=== PATIENT | female | born 1935 | race Caucasian/White ===

== ENCOUNTER 2021-02-17 11:59 | Inpatient (IN) | payer OTHER, SELFPAY ==
[2021-02-17] VITALS (25 sets, daily range): BP systolic 113–154; BP diastolic 51–76; PULSE 66–89; RESP 16–35; TEMP 36.3–37.2; O2SAT 88–100; BMI 35.9
--- NOTE | ~2021-02-17 | CT_ITS ---
EXAMINATION: CTA chest PE protocol DATE: 02/17/2021 18:08 INDICATION: Shortness of breath. Elevated d-dimer. TECHNIQUE: Computed tomography (CT) pulmonary angiogram of the chest was performed with 100 mL Omnipa que-350 intravenous contrast. Additional 3D reconstructions utilizing coronal maximum intensity proje ction (MIP) were performed. Automated exposure control and iterative reconstruction technique were em ployed. The dose-length product was 830.33 mGy-cm. COMPARISON: None FINDINGS: Excellent contrast opacification of the pulmonary arteries. There is moderate streak artifact from de nse contrast in the superior vena cava and right atrium. Severe motion artifact in the lower lung zon es and mild to moderate motion in the upper lung zones. Together this decreases sensitivity in the garcia bsegmental pulmonary arteries in the mid and upper lung zones and renders evaluation in the subsegmen rodney pulmonary arteries at the bilateral lower lung zones and the basilar subsegmental pulmonary arter ies of the left lower lobe essentially nondiagnostic. No definitive pulmonary embolism. Dependent ate lectasis in the bilateral upper lobes and lingula and more prominently in the bilateral lower lobes. There is additional compressive atelectasis in the left lower lobe at the periphery of a large slidin g-type hiatal hernia with organoaxial volvulus. Partially calcified chronic bronchoceles in the right lower lobe. Additional mucous plugging in the basilar bronchi of the left lower lobe. A few addition al small calcified nodules scattered throughout both lungs along with additional calcified nodules, f ew in the liver and multiple the spleen, all consistent with old granulomatous disease. No pulmonary edema, pleural effusion or pneumothorax. Heart size is normal. Atherosclerotic coronary artery calcif ication. No pericardial effusion. Thoracic aorta is normal in caliber with no dissection. No patholog ically enlarged thoracic lymphadenopathy. Gallbladder is dilated to 4.7 cm with no pericholecystic in flammatory stranding to suggest acute cholecystitis. Moderate thoracic spondylosis with bridging oste ophytes at multiple levels consistent with diffuse idiopathic skeletal hyperostosis (DISH). IMPRESSION: 1. No definitive pulmonary embolism. Sensitivity decreased in the subsegmental pulmonary arteries in the mid and upper lung zones and essentially nondiagnostic in the basilar segmental pulmonary arterie s of the left lower lobe and the subsegmental arteries at the bilateral lung bases due to primarily t o large amount of motion artifact. 2. Scattered dependent predominant atelectasis in both lungs along with some mucous plugging the left lower lobe and a chronic partially calcified bronchocele in the right lower lobe. 3. Large sliding-type hiatal hernia. Reviewed, dictated and finalized at location A. IMPRESSION: 1. No definitive pulmonary embolism. Sensitivity decreased in the subsegmental pulmonary arteries in the mid and upper lung zones and essentially nondiagnosti c in the basilar segmental pulmonary arteries of the left lower lobe and the garcia bsegmental arteries at the bilateral lung bases due to primarily to large amoun t of motion artifact. 2. Scattered dependent predominant atelectasis in both lungs along with some mu cous plugging the left lower lobe and a chronic partially calcified bronchocele in the right lower lobe. 3. Large sliding-type hiatal hernia.
--- NOTE | ~2021-02-17 | XR_ITS ---
EXAMINATION: XR chest 2V EXAM DATE: 02/17/2021 12:37 INDICATION: Dyspnea, acute hypoxia, COVID + . TECHNIQUE: Frontal and lateral projections of the chest obtained and reviewed. Comparison is made to prior examination from 11/15/2018. FINDINGS: Moderate-sized gastroesophageal hiatal hernia. Some adjacent airspace disease most likely a telectasis. There are no pleural effusions. The cardiomediastinal silhouette is within normal limits . There is no pneumothorax suspected. The bones and soft tissues are unremarkable. There is no si gnificant interval change. IMPRESSION: Moderate-sized hiatal hernia, adjacent atelectasis. Reviewed, dictated and finalized at location A.
--- NOTE | 2021-02-17 12:06 | ECG_ITS ---
Measurements Intervals [place] Rate: 77 P: 72 IN: 163 QRS: 19 QRSD: 90 T: 116 QT: 363 QTc: 413 Interpretive Statements SINUS RHYTHM ST-T WAVE ABNORMALITY IN ANTEROLATERAL LEADS- CONSIDER ISCHEMIA BASELINE ARTIFACT- I, II, III, AVR, AVL, AVF, V5 ABNORMAL ECG Electronically Signed On 02-17-2021 19:20:16 CDT by Jeremy Solorio D.O.
[2021-02-17 12:22] LABS: Basophils Percent Auto 0.2 % (0.2-1.2); Eosinophils Percent Auto 0.2 % (0-4.4); Hematocrit 36.9 % (37.0-47.0); Hemoglobin 12.3 g/dL (12.0-15.0); Immature Granulocyte Absolute 0.02 K/mm3 (0.00-0.031); Immature Granulocyte Percent A 0.3 % (0-0.5); Immature Platelet Fraction Pct 4.4 % (0.9-11.2); Lymphocytes Absolute Auto 2.29 K/mm3 (0.9-3.2); Lymphocytes Percent Auto 38.3 % (18.3-44.2); Mean Corpuscular HGB Conc 33.3 g/dl (32-36); Mean Corpuscular Hemoglobin 31.4 pg (26-34); Mean Corpuscular Volume 94.1 fl (80-100); Mean Platelet Volume 10.9 fl (7.4-10.4); Monocytes Absolute Auto 0.4 K/mm3 (0.1-0.6); Monocytes Percent Auto 6.7 % (2.6-8.5); Neutrophils Absolute Auto 3.3 K/mm3 (1.3-6.7); Neutrophils Percent Auto 54.3 % (45.5-73.1); Platelet Count Result 101 k/mm3 (150-375); Red Blood Count 3.92 M/mm3 (4.2-5.4); Red Cell Distribution Width 13.6 % (11.5-14.5)
--- NOTE | 2021-02-17 12:49 | ED.GENADULT ---
HPI - General Adult General Chief complaint: Recheck/Abnormal Lab/Rx Stated complaint: CONFUSION,LOW O2 SATS,COVID + Time Seen by Provider: 02/17/21 12:23 Source: EMS Mode of arrival: EMS Limitations: altered mental status and dementia History of Present Illness HPI narrative: Patient is an 85-year-old female brought in by EMS from a senior care due to low oxygen saturation. Per EMS her saturation was between 88 to 91%, was placed on 2 L upon arrival. Per senior care staff patient was more confused than usual. Patient tested positive for Covid 5 days ago. Patient is a very poor historian due to her history of dementia. Related Data Allergies Allergy/AdvReac Type Severity Reaction Status Date / Time Sulfa (Sulfonamide Allergy Mild Verified 07/17/20 12:36 Antibiotics) Review of Systems Review of Systems: All systems reviewed & are unremarkable except as noted in HPI and below ROS unobtainable: Yes unobtainable due to mental status and other (Dementia) [facility] Family History Family History Mother Family history of osteoarthritis Family history of primary malignant neoplasm of liver Carcinoma of colon, Onset Age: 86 Grandparent Cerebrovascular accident Family history of coronary artery disease Family history of primary malignant neoplasm of liver Father Family history of diabetes mellitus in first degree relative Acute myocardial infarction FH myocardial infarction male first degree age known, Onset Age: 64 Sibling Family history of coronary artery disease Other Family history of cardiovascular disease Social History Social History Smoking status: Never smoker Alcohol intake: never Exam Const: General: cooperative, comfortable, well developed, alert and awake; No confusion Orientation/consciousness: oriented to person and No confusion Limitations: no limitations HENMT: Head: normal to inspection, normocephalic and atraumatic Ears: hearing grossly normal bilaterally, TM normal on the right and TM normal on the left General nose exam: Normal external nose present, Normal nares present and No nasal discharge present Face and sinus: normal facial exam Mouth: Yes Normal oral and palatal mucosa present, Yes lip normal, Yes tongue normal and Yes oropharynx normal Throat: posterior oropharynx normal, tonsils normal and uvula midline Eyes: General: appearance normal, both eyes and all related structures Pupils: Equal, round and reactive pupils present EOM: EOMs intact bilaterally Neck: Neck: normal visual inspection, full ROM, no lymphadenopathy and no meningeal signs Chest: Chest palpation & inspection: normal inspection of the chest Resp: Effort & Inspection: normal respiratory effort, able to speak in complete sentences, no respiratory distress and not tachypneic Auscultation: clear to auscultation bilaterally, no crackles, no rales, no rhonchi and no wheezes Cardio: Rate: regular rate Rhythm: regular rhythm GI: Inspection: normal to inspection GI Palp: No abdominal tenderness, Yes Soft to palpation, No Tenderness to palpation present (GI), No Guarding due to palpation present (GI), No Rigid due to palpation and No Rebound tenderness present Auscultation: normal bowel sounds : General: Yes no CVA tenderness Back/Spine/Pelvis: Back: no CVA tenderness Skin: General skin exam: normal color, no rashes or lesions noted, elasticity normal and turgor normal Neuro: General: oriented to person, tone normal, moves all extremities, Normal light touch and pain sensation, no meningeal signs and no focal motor deficits Cranial nerves: Yes Equal, round and reactive pupils present Speech: No Abnormal speech present Sensory Exam: No Sensory deficit (Neuro) Extrem: General: normal to inspection, full ROM and capillary refill normal Psych: Appearance: grossly normal and well kempt Course
[2021-02-17 12:56] LABS: Anion Gap 12 mmol/L (8-16); Blood Urea Nitrogen 18 mg/dL (7-17); Calcium 8.2 mg/dL (8.4-10.2); Carbon Dioxide 24 mmol/L (22-30); Chloride 105 mmol/L (98-107); Estimated CRCL calculation 41 ml/min; Estimated Glomerular Filt Rate 53; Glucose 133 mg/dL (65-110); Potassium 3.9 mmol/L (3.4-5.0); Sodium 141 mmol/L (137-145)
[2021-02-17] MEDS: IPRATROPIUM BR 0.02% INH SOLN 0.5 MG/2.5 ML VIAL INHALATION (15:14)
[2021-02-17] MEDS: ALBUTEROL SULFATE NEB 2.5 MG/0.5 ML INH 5 MG INHALATION (15:14)
[2021-02-17 15:56] LABS: D Dimer 0.61 ug/mL (<0.48)
[2021-02-17 16:04] LABS: Lactic Acid Reflex 1.1 mmol/L (0.7-2.1)
[2021-02-17 16:07] LABS: CRP 4.4 mg/dL (<1.0)
[2021-02-17] MEDS: DEXAMETHASONE SOD PHOS INJ 4 MG/ML VIAL 10 MG IV PUSH (17:34)
[2021-02-17 21:01] LABS: Glucose Point of Care 186 mg/dl (65-105)
--- NOTE | 2021-02-17 21:07 | PC.NURSE ---
This RN returned call to pt's daughter Neisha Fisher, and provided update. will pass her number on to inpt. RN assuming care. [phone].
--- NOTE | 2021-02-17 21:29 | PM.IMHP ---
H&P: HPI History of Present Illness Date/Time: 02/17/21 21:29 this is an 85-year-old female patient resides at a detention. She has a history of dementia and is having difficulty answering questions. The patient has no complaints of when I ask her questions she just laughs and states that she can not remember. She has no idea why she is at the hospital. The patient came to the emergency room via EMS because her O2 saturations were between 88-91. She was placed on oxygen at 2 L per nasal cannula per detention staff and according to the detention staff the patient was more confused than normal. The patient had tested positive for COVID 5 days ago. The patient is a very poor historian. The patient is not sure if she had been vaccinated or not. However she does live in a facility. Chest x-ray was read as moderate size hiatal hernia, decent atelectasis. Chest CTA was read as the following. 1. No definitive pulmonary embolism. Sensitivity decreased in the subsegmental pulmonary arteries in the mid and upper lung zones and essentially nondiagnostic in the basilar segmental pulmonary arteries of the left lower lobe and the subsegmental arteries at the bilateral lung bases due to primarily to large amount of motion artifact. 2. Scattered dependent predominant atelectasis in both lungs along with some mucous plugging the left lower lobe and a chronic partially calcified bronchocele in the right lower lobe. 3. Large sliding-type hiatal hernia. The patient was given Decadron and DuoNebs in the emergency room. The patient does not appear to be in any respiratory distress at this time. Patient's blood sugar is 186. Patient is being admitted for observation status on the date of service of 02/17/2021 Chief Complaint: Hypoxia Review of Systems Review of Systems: All systems reviewed & are unremarkable except as noted in HPI and below Constitutional: Constitutional: Reports as per HPI and Reports no additional constitutional complaints Eyes: Eyes: Reports as per HPI and Reports no additional eye complaints ENT: Reports system reviewed and no additional complaints, except as documented and Reports Normal hearing present Cardiovascular: Cardiovascular: Reports no additional cardiovascular complaints Respiratory: Respiratory: Reports no additional respiratory complaints and Reports no additional respiratory complaints Gastrointestinal: Gastrointestinal: Reports as per HPI and Reports no additional gastrointestinal complaints Musculoskeletal: Musculoskeletal: Reports no additional musculoskeletal complaints Integumentary/Breasts: Skin/Breast: Reports system reviewed and no additional complaints, except as docu and Reports as per HPI Neurologic: Reports system reviewed and no additional complaints, except as documented, Reports as per HPI and Reports Normal hearing present Psychiatric: Psychiatric: Reports no additional psychiatric complaints and Reports as per HPI Endocrine: Endocrine: Reports no additional endocrine complaints Hematologic/Lymphatic: Hematologic/Lymphatic: Reports no additional hematologic/lymphatic complaints Allergic/Immunologic: Allergic/Immunologic: Reports no additional allergic/immunologic complaints [facility] Past Medical History Medical History (Updated 02/17/21 @ 22:[address] NP) CAD (coronary artery disease) Cataracts, both eyes Chronic GERD CVA (cerebral vascular accident) Dementia Depression Diabetes type 2, uncontrolled Dyslipidemia Glaucoma History of DVT (deep vein thrombosis) History of pulmonary embolism Hypertension Hypothyroidism Obstructive sleep apnea TIA (transient ischemic attack) Surgical History Surgical History (Updated 02/17/21 @ 21:[address] NP) H/O heart artery stent Family History Family History Mother Family history of osteoarthritis Family history of primary malignant neoplasm of liver Carcinoma
[2021-02-17 22:42] LABS: INR 1.2; Prothrombin Time 14.8 Seconds (11.1-14.7)
[2021-02-17 22:49] LABS: Alanine Aminotransferase 20 U/L (4-35); Estimated CRCL calculation 44 ml/min; Estimated Glomerular Filt Rate 53
--- NOTE | 2021-02-17 22:59 | PC.NURSE ---
This patient, Esme Reynolds, was admitted to [facility] Surg Room 315-01. Patient/family oriented to hospital policies and general routines including ID bracelet, bed and alarms, visiting hours, pain management, procedures, bathroom and other care routines, personal items, smoking policy, room service/diet, and visiting hours. Information on how to activate the Rapid Response Team has been discussed. Patient/Family are encouraged to report perceived risks to care and to ask questions if they do not understand what they are told or what they should do.
[2021-02-18] VITALS (13 sets, daily range): BP systolic 117–148; BP diastolic 48–71; PULSE 56–85; RESP 18–22; TEMP 36.4–37.1; O2SAT 92–94
[2021-02-18] MEDS: REMDESIVIR 200 MG/NS 250 ML 200 MG/250 ML BAG 250 MG IVPB (01:12)
[2021-02-18] MEDS: IPRATROPIUM BR 0.02% INH SOLN 0.5 MG/2.5 ML VIAL INHALATION ×4 (04:04→22:19)
[2021-02-18] MEDS: ALBUTEROL SULFATE NEB 2.5 MG/0.5 ML INH 5 MG INHALATION ×4 (04:04→22:18)
[2021-02-18 06:32] LABS: Glucose Point of Care 216 mg/dl (65-105)
[2021-02-18 06:47] LABS: INR 1.1; Prothrombin Time 13.8 Seconds (11.1-14.7)
[2021-02-18 07:03] LABS: Hemoglobin A1C 7.6 % (<5.7)
[2021-02-18 07:35] LABS: Alanine Aminotransferase 20 U/L (4-35); Estimated CRCL calculation 54 ml/min; Estimated Glomerular Filt Rate > 60
[2021-02-18] MEDS: ENOXAPARIN 40 MG/0.4 ML SYRINGE SUB-Q (08:12)
[2021-02-18 08:59] LABS: Glucose Point of Care 198 mg/dl (65-105)
[2021-02-18 12:28] LABS: Glucose Point of Care 155 mg/dl (65-105)
--- NOTE | 2021-02-18 12:49 | PCAUD ---
POA updated on pt status this morning and afternoon, poor appetite, and 50% lunch.
--- NOTE | 2021-02-18 16:33 | PM.IMPN ---
Progress Note: A&P Assessment and Plan (1) Acute respiratory failure due to COVID-19: Code(s): U07.1 - COVID-19; J96.00 - Acute respiratory failure, unspecified whether with hypoxia or hypercapnia Status: Acute Assessment and Plan: Noted to be hypoxic down to 88% She is maintaining adequate oxygenation on 2 L supplemental O2 Continue supplemental O2 as needed with goal saturation 92% or above. Wean to goal. Plan as described below (2) COVID-19: Code(s): U07.1 - COVID-19 Status: Acute Assessment and Plan: Patient tested positive on 02/13/2021. No significant airspace disease noted on CXR or CTA Continue dexamethasone, started on 02/17 Continue remdesivir. ALT within normal limits Supplemental O2 as above Supportive care to include bronchodilators, expectorants, antipyretics, and incentive spirometry Trend acute phase reactants Continue isolation precautions She completed Pfizer COVID vaccination on 07/24/2020 (3) Diabetes type 2, uncontrolled: Code(s): E11.65 - Type 2 diabetes mellitus with hyperglycemia Status: Chronic Assessment and Plan: A1c is 7.6 Continue Accu-Cheks, sliding scale insulin, and hypoglycemic protocol Glucose well controlled today. May need to consider addition of low-dose Lantus while on IV steroids if glucose levels become elevated Monitor glucose trends and adjust medications as needed (4) Hypertension: Code(s): I10 - Essential (primary) hypertension Status: Acute Assessment and Plan: Blood pressure reviewed and has been generally well controlled. Last BP 148/55 Continue metoprolol succinate Monitor BP trends (5) Hypothyroidism: Code(s): E03.9 - Hypothyroidism, unspecified Status: Chronic Assessment and Plan: Continue levothyroxine Check reflex TSH (6) Dementia: Code(s): F03.90 - Unspecified dementia without behavioral disturbance Status: Chronic Assessment and Plan: A&O x1 at baseline Mental status is at baseline at this time Continue memantine Subjective Date/time seen: 02/18/21 16:33 Interval history: Date of service: 02/18/2021 Esme Reynolds is 85-year-old female with a history of dementia in Memory Care, CVA, type 2 diabetes mellitus, 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 She is not able to provide any reliable history due to her dementia. Discussed with staff at patient's memory care center. Reports that at baseline she is A&O x1 and her mental status is fluctuant. Review of Systems Review of Systems: ROS unobtainable: Yes unobtainable due to mental status Exam Narrative: Esme Reynolds is a well-nourished, well-appearing 85-year-old female who is lying supine in bed. She appears comfortable and is in NARD. Neuro: awake, alert and oriented to self only, speech clear, pleasantly confused HEENMT: normocephalic, atraumatic, EOMI, sclerae anicteric, moist oral mucosa Neck: supple, no lymphadenopathy Respiratory: Diminished breath sounds bilaterally without crackles, rhonchi, or wheezes, nonlabored breathing Cardio: regular rate, regular rhythm with S1-S2 Abdomen: nondistended, normoactive bowel sounds, soft, nontender to palpation Extremities: no edema, erythema, or tenderness to palpation, DP pulses 2+ bilaterally Skin: no rashes or lesions, warm and dry Psych: Confused, poor judgment and insight Objective Data Vital Signs Vital Signs: Vital Signs - 24 hr 02/17/21 16:45 02/17/21 19:00 02/17/21 19:15 Temperature Pulse Rate 70 74 78 Respiratory Rate 28 H 23 H 26 H Blood Pressure 117/73 Pulse Oximetry 96 02/17/21 19:29 02/17/21 19:30 02/17/21 19:32 Temperature 99.0 F Pulse Rate 74 Respiratory Rate 35 H 30 H Blood Pressure Pulse Oximetry 92 02/17/21 19:47 02/17/21 20:00 02/17/21 20:15 [place]
[2021-02-18 17:16] LABS: Glucose Point of Care 164 mg/dl (65-105)
[2021-02-18] MEDS: RIVAROXABAN 20 MG TABLET PO (18:20)
[2021-02-18] MEDS: REMDESIVIR 100 MG/NS 250 ML 100 MG/250 ML BAG 250 MG IVPB (21:33)
[2021-02-18] MEDS: MEMANTINE 5 MG TABLET PO (21:33)
[2021-02-18] MEDS: AMITRIPTYLINE HCL 10 MG TABLET PO (21:33)
[2021-02-18] MEDS: busPIRone HCL 10 MG TABLET PO (21:33)
[2021-02-18 21:49] LABS: Glucose Point of Care 166 mg/dl (65-105)
[2021-02-18] MEDS: guaiFENesin 12 HR 600 MG TABCR PO (23:22)
[2021-02-19] VITALS (14 sets, daily range): BP systolic 124–177; BP diastolic 47–86; PULSE 59–77; RESP 16–24; TEMP 36.3–36.9; O2SAT 93–97
[2021-02-19] MEDS: IPRATROPIUM BR 0.02% INH SOLN 0.5 MG/2.5 ML VIAL INHALATION ×4 (02:22→20:45)
[2021-02-19] MEDS: ALBUTEROL SULFATE NEB 2.5 MG/0.5 ML INH 5 MG INHALATION ×4 (02:22→20:45)
[2021-02-19] MEDS: LEVOTHYROXINE SODIUM 100 MCG TABLET PO (05:51)
[2021-02-19 06:45] LABS: Hematocrit 33.3 % (37.0-47.0); Hemoglobin 11.3 g/dL (12.0-15.0); Immature Platelet Fraction Pct 6.5 % (0.9-11.2); Mean Corpuscular HGB Conc 33.9 g/dl (32-36); Mean Corpuscular Hemoglobin 31.2 pg (26-34); Mean Platelet Volume 10.9 fl (7.4-10.4); Platelet Count Result 93 k/mm3 (150-375); Red Blood Count 3.62 M/mm3 (4.2-5.4); Red Cell Distribution Width 13.4 % (11.5-14.5); White Blood Count 6.6 K/mm3 (4.5-10.0)
[2021-02-19 06:59] LABS: Alanine Aminotransferase 20 U/L (4-35); Albumin Level 3.6 g/dL (3.5-5.1); Alkaline Phosphatase 42 U/L (38-126); Anion Gap 10 mmol/L (8-16); Aspartate Amino Transferase 50 U/L (14-36); Bilirubin,Total 0.7 mg/dL (0.2-1.3); Blood Urea Nitrogen 27 mg/dL (7-17); CRP 4.2 mg/dL (<1.0); Calcium 8.3 mg/dL (8.4-10.2); Carbon Dioxide 26 mmol/L (22-30); Chloride 104 mmol/L (98-107); Estimated CRCL calculation 48 ml/min; Estimated Glomerular Filt Rate 60; Glucose 206 mg/dL (65-110); Lactate Dehydrogenase 536 U/L (313-618); Potassium 3.6 mmol/L (3.4-5.0); Sodium 140 mmol/L (137-145)
[2021-02-19 07:05] LABS: INR 2.3; Prothrombin Time 24.4 Seconds (11.1-14.7)
[2021-02-19 07:48] LABS: Thyroid Stimulating Hormone Reflex 0.175 uIU/mL (0.465-4.68)
[2021-02-19 08:24] LABS: Glucose Point of Care 174 mg/dl (65-105)
[2021-02-19] MEDS: ASPIRIN 81 MG CHEWABLE TABLET PO (08:38)
[2021-02-19] MEDS: LORATADINE 10 MG TABLET PO (08:38)
[2021-02-19] MEDS: FERROUS SULFATE 324 MG TABLET PO (08:38)
[2021-02-19] MEDS: FUROSEMIDE 40 MG TABLET PO (08:38)
[2021-02-19] MEDS: PANTOPRAZOLE 40 MG TABLET PO (08:38)
[2021-02-19] MEDS: METOPROLOL SUCCINATE EXT REL 50 MG TABCR PO (08:38)
[2021-02-19 10:02] LABS: Glucose Point of Care 158 mg/dl (65-105)
[2021-02-19] MEDS: busPIRone HCL 10 MG TABLET PO ×2 (10:35→21:49)
[2021-02-19] MEDS: MEMANTINE 5 MG TABLET PO ×2 (10:35→21:49)
[2021-02-19] MEDS: guaiFENesin 12 HR 600 MG TABCR PO ×2 (10:35→21:49)
[2021-02-19 11:46] LABS: Glucose Point of Care 146 mg/dl (65-105)
[2021-02-19 13:56] LABS: Free T4 Free Thyroxine Reflex 1.58 ng/dL (0.78-2.19)
[2021-02-19 15:02] LABS: Total Triiodothyronine (T3) 0.61 NG/ML (0.97-1.69)
[2021-02-19] MEDS: RIVAROXABAN 20 MG TABLET PO (16:18)
--- NOTE | 2021-02-19 17:36 | PM.IMPN ---
Progress Note: A&P Assessment and Plan (1) Acute respiratory failure due to COVID-19: Code(s): U07.1 - COVID-19; J96.00 - Acute respiratory failure, unspecified whether with hypoxia or hypercapnia Status: Acute Assessment and Plan: Noted to be hypoxic down to 88% She is maintaining adequate oxygenation on 2 L supplemental O2 Continue supplemental O2 as needed with goal saturation 92% or above. Wean to goal. Plan as described below (2) COVID-19: Code(s): U07.1 - COVID-19 Status: Acute Assessment and Plan: Patient tested positive for COVID on 02/13/2021. No significant airspace disease noted on CXR or CTA Continue dexamethasone, started on 02/17 Continue remdesivir. ALT within normal limits Supplemental O2 as above Supportive care to include bronchodilators, expectorants, antipyretics, and incentive spirometry Trend acute phase reactants Continue isolation precautions She completed Pfizer COVID vaccination on 07/24/2020 (3) Diabetes type 2, uncontrolled: Code(s): E11.65 - Type 2 diabetes mellitus with hyperglycemia Status: Chronic Assessment and Plan: A1c is 7.6. Glucose reasonably controlled today 150-200 Continue Accu-Cheks, sliding scale insulin, and hypoglycemic protocol Glucose well controlled today. May need to consider addition of low-dose Lantus while on IV steroids if glucose levels become elevated Monitor glucose trends and adjust medications as needed (4) Hypertension: Code(s): I10 - Essential (primary) hypertension Status: Acute Assessment and Plan: Blood pressure reviewed and has been generally well controlled. Last BP 130/47 Continue metoprolol succinate Monitor BP trends (5) Hypothyroidism: Code(s): E03.9 - Hypothyroidism, unspecified Status: Chronic Assessment and Plan: TSH slightly decreased with normal T4. 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 She is a poor historian due to her dementia. She denies shortness of breath or cough. She is not able to reliably provide any further history. Review of Systems Review of Systems: All systems reviewed & are unremarkable except as noted in HPI and below Exam Narrative: Esme Reynolds is a well-nourished, well-appearing 85-year-old female who is lying supine in bed. She appears comfortable and is in NARD. Neuro: awake, alert and oriented to self only, speech clear, pleasantly confused HEENMT: normocephalic, atraumatic, EOMI, sclerae anicteric, moist oral mucosa Neck: supple, no lymphadenopathy Respiratory: Diminished breath sounds bilaterally without crackles, rhonchi, or wheezes, nonlabored breathing Cardio: regular rate, regular rhythm with S1-S2 Abdomen: nondistended, normoactive bowel sounds, soft, nontender to palpation Extremities: no edema, erythema, or tenderness to palpation, DP pulses 2+ bilaterally Skin: no rashes or lesions, warm and dry Psych: Confused, poor judgment and insight Objective Data Vital Signs Vital Signs: Vital Signs - 24 hr 02/18/21 20:00 02/18/21 22:20 02/18/21 22:28 Temperature 98.7 F Pulse Rate 69 63 70 Respiratory Rate 18 20 20 Blood Pressure 137/52 L Pulse Oximetry 94 94 02/19/21 00:00 02/19/21 02:23 02/19/21 02:32 Temperature
[2021-02-19 17:51] LABS: Glucose Point of Care 123 mg/dl (65-105)
[2021-02-19] MEDS: ATORVASTATIN 20 MG TABLET 60 MG PO (21:49)
[2021-02-19] MEDS: AMITRIPTYLINE HCL 10 MG TABLET PO (21:49)
[2021-02-19] MEDS: REMDESIVIR 100 MG/NS 250 ML 100 MG/250 ML BAG 250 MG IVPB (21:50)
[2021-02-19 22:02] LABS: Glucose Point of Care 128 mg/dl (65-105)
[2021-02-20] VITALS (16 sets, daily range): BP systolic 128–148; BP diastolic 48–64; PULSE 62–126; RESP 18–20; TEMP 36.1–37.1; O2SAT 90–96; BMI 10.0
[2021-02-20] MEDS: ALBUTEROL SULFATE NEB 2.5 MG/0.5 ML INH 5 MG INHALATION ×4 (03:12→20:40)
[2021-02-20] MEDS: IPRATROPIUM BR 0.02% INH SOLN 0.5 MG/2.5 ML VIAL INHALATION ×4 (03:12→20:40)
[2021-02-20 06:41] LABS: Hematocrit 35.2 % (37.0-47.0); Hemoglobin 11.7 g/dL (12.0-15.0); Immature Platelet Fraction Pct 6.7 % (0.9-11.2); Mean Corpuscular HGB Conc 33.2 g/dl (32-36); Mean Corpuscular Hemoglobin 31.3 pg (26-34); Mean Corpuscular Volume 94.1 fl (80-100); Mean Platelet Volume 11.1 fl (7.4-10.4); Platelet Count Result 112 k/mm3 (150-375); Red Blood Count 3.74 M/mm3 (4.2-5.4); Red Cell Distribution Width 13.4 % (11.5-14.5); White Blood Count 7.5 K/mm3 (4.5-10.0)
[2021-02-20 06:56] LABS: INR 2.3; Prothrombin Time 24.8 Seconds (11.1-14.7)
[2021-02-20 06:58] LABS: Alanine Aminotransferase 19 U/L (4-35); Albumin Level 3.6 g/dL (3.5-5.1); Alkaline Phosphatase 50 U/L (38-126); Anion Gap 9 mmol/L (8-16); Aspartate Amino Transferase 55 U/L (14-36); Bilirubin,Total 0.9 mg/dL (0.2-1.3); Blood Urea Nitrogen 26 mg/dL (7-17); CRP 4.2 mg/dL (<1.0); Carbon Dioxide 28 mmol/L (22-30); Chloride 106 mmol/L (98-107); Estimated CRCL calculation 44 ml/min; Estimated Glomerular Filt Rate 53; Glucose 106 mg/dL (65-110); Potassium 3.2 mmol/L (3.4-5.0); Sodium 143 mmol/L (137-145)
[2021-02-20] MEDS: LEVOTHYROXINE SODIUM 100 MCG TABLET PO (07:03)
[2021-02-20] MEDS: LORATADINE 10 MG TABLET PO (10:18)
[2021-02-20] MEDS: PANTOPRAZOLE 40 MG TABLET PO (10:18)
[2021-02-20] MEDS: POTASSIUM CHLORIDE 20 MEQ TABLET 40 MEQ PO (10:18)
[2021-02-20] MEDS: FUROSEMIDE 40 MG TABLET PO (10:18)
[2021-02-20] MEDS: FERROUS SULFATE 324 MG TABLET PO (10:18)
[2021-02-20] MEDS: busPIRone HCL 10 MG TABLET PO ×2 (10:18→21:04)
[2021-02-20] MEDS: MEMANTINE 5 MG TABLET PO ×2 (10:19→21:04)
[2021-02-20] MEDS: METOPROLOL SUCCINATE EXT REL 50 MG TABCR PO (10:19)
[2021-02-20] MEDS: ASPIRIN 81 MG CHEWABLE TABLET PO (10:19)
[2021-02-20] MEDS: guaiFENesin 12 HR 600 MG TABCR PO ×2 (10:21→21:04)
[2021-02-20 10:35] LABS: Glucose Point of Care 107 mg/dl (65-105)
[2021-02-20 12:42] LABS: Glucose Point of Care 140 mg/dl (65-105)
--- NOTE | 2021-02-20 12:53 | PCOTNOTE ---
OT evaluation attempted yet patient unable to participate at this time. Will attempt evaluation again in the afternoon.
--- NOTE | 2021-02-20 15:38 | P.PNIM_ITS ---
Progress Note: A&P Assessment and Plan (1) Acute respiratory failure due to COVID-19: Code(s): U07.1 - COVID-19; J96.00 - Acute respiratory failure, unspecified whether with hypoxia or hypercapnia Status: Acute Assessment and Plan: Noted to be hypoxic down to 88% on arrival * She required up to 2 L supplemental O2 but has now been weaned to room air and is maintaining O2 sats >90% * Continue supplemental O2 as needed with goal saturation 92% or above. Wean to goal. * Plan as described below (2) COVID-19: Code(s): U07.1 - COVID-19 Status: Acute Assessment and Plan: Patient tested positive for COVID on 02/13/2021. No significant airspace disease noted on CXR or CTA * Continue dexamethasone, started on 02/17 * Continue remdesivir. Date 4 today. ALT within normal limits * Tolerating room air. Will proceed with home O2 evaluation * Supportive care to include bronchodilators, expectorants, antipyretics, and incentive spirometry * Trend acute phase reactants * Continue isolation precautions * Possible discharge home tomorrow if continued improvement and able to remain on room air. * She completed Pfizer COVID vaccination on 07/24/2020 (3) Diabetes type 2, uncontrolled: Code(s): E11.65 - Type 2 diabetes mellitus with hyperglycemia Status: Chronic Assessment and Plan: A1c is 7.6. * Continue Accu-Cheks, sliding scale insulin, and hypoglycemic protocol * Glucose well controlled today 110-140. May need to consider addition of low- dose Lantus while on IV steroids if glucose levels become elevated * Monitor glucose trends and adjust medications as needed (4) Hypertension: Code(s): I10 - Essential (primary) hypertension Status: Acute Assessment and Plan: Blood pressure reviewed and has been generally well controlled. Last BP 128/52 * Continue metoprolol succinate * Monitor BP trends (5) Hypothyroidism: Code(s): E03.9 - Hypothyroidism, unspecified Status: Chronic Assessment and Plan: TSH slightly decreased with normal T4. T3 slightly decreased * Continue levothyroxine * She will need repeat reflex TSH in 4 weeks upon resolution of acute illness (6) Dementia: Code(s): F03.90 - Unspecified dementia without behavioral disturbance Status: Chronic Assessment and Plan: A&O x1 at baseline * Mental status is at baseline at this time * Continue memantine (7) Choking due to food (regurgitated): Code(s): T17.320A - Food in larynx causing asphyxiation, initial encounter Status: Acute Assessment and Plan: On my evaluation today the patient was eating a fruit cup. She later began coughing and coughed up a cut a piece of fruit. She denies dysphagia to me. * Will proceed with bedside swallow study. 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 She is a poor historian due to her dementia. I am not able to obtain any reliable history from the patient. Reports she has not been wanting to eat much. When I was in the room she was eating a fruit cup. She later began coughing and coughed up an undigested pie
--- NOTE | 2021-02-20 15:38 | PM.IMPN ---
Progress Note: A&P Assessment and Plan (1) Acute respiratory failure due to COVID-19: Code(s): U07.1 - COVID-19; J96.00 - Acute respiratory failure, unspecified whether with hypoxia or hypercapnia Status: Acute Assessment and Plan: Noted to be hypoxic down to 88% on arrival She required up to 2 L supplemental O2 but has now been weaned to room air and is maintaining O2 sats >90% Continue supplemental O2 as needed with goal saturation 92% or above. Wean to goal. Plan as described below (2) COVID-19: Code(s): U07.1 - COVID-19 Status: Acute Assessment and Plan: Patient tested positive for COVID on 02/13/2021. No significant airspace disease noted on CXR or CTA Continue dexamethasone, started on 02/17 Continue remdesivir. Date 4 today. ALT within normal limits Tolerating room air. Will proceed with home O2 evaluation Supportive care to include bronchodilators, expectorants, antipyretics, and incentive spirometry Trend acute phase reactants Continue isolation precautions Possible discharge home tomorrow if continued improvement and able to remain on room air. She completed [employer] COVID vaccination on 07/24/2020 (3) Diabetes type 2, uncontrolled: Code(s): E11.65 - Type 2 diabetes mellitus with hyperglycemia Status: Chronic Assessment and Plan: A1c is 7.6. Continue Accu-Cheks, sliding scale insulin, and hypoglycemic protocol Glucose well controlled today 110-140. May need to consider addition of low-dose Lantus while on IV steroids if glucose levels become elevated Monitor glucose trends and adjust medications as needed (4) Hypertension: Code(s): I10 - Essential (primary) hypertension Status: Acute Assessment and Plan: Blood pressure reviewed and has been generally well controlled. Last BP 128/52 Continue metoprolol succinate Monitor BP trends (5) Hypothyroidism: Code(s): E03.9 - Hypothyroidism, unspecified Status: Chronic Assessment and Plan: TSH slightly decreased with normal T4. T3 slightly decreased Continue levothyroxine She will need repeat reflex TSH in 4 weeks upon resolution of acute illness (6) Dementia: Code(s): F03.90 - Unspecified dementia without behavioral disturbance Status: Chronic Assessment and Plan: A&O x1 at baseline Mental status is at baseline at this time Continue memantine (7) Choking due to food (regurgitated): Code(s): T17.320A - Food in larynx causing asphyxiation, initial encounter Status: Acute Assessment and Plan: On my evaluation today the patient was eating a fruit cup. She later began coughing and coughed up a cut a piece of fruit. She denies dysphagia to me. Will proceed with bedside swallow study. 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 She is a poor historian due to her dementia. I am not able to obtain any reliable history from the patient. Reports she has not been wanting to eat much. When I was in the room she was eating a fruit cup. She later began coughing and coughed up an undigested piece of fruit. Spoke with her RN who has not noted any issues with swallowing but reports she has not been able to see her eat because she has refused food when RN has offered. RN spoke with her daughter who reports she typically has a poor appetite. Review of Systems Review of Systems: All systems reviewed & are unremarkable except as noted in HPI and below Exam Narrative: Esme Reynolds is a well-nourished, well-appearing 85-year-old female
[2021-02-20 16:58] LABS: Glucose Point of Care 245 mg/dl (65-105)
[2021-02-20] MEDS: INSULIN ASPART (*BKC) 100 UNITS/ML SUB-Q (16:58)
[2021-02-20] MEDS: RIVAROXABAN 20 MG TABLET PO (16:59)
[2021-02-20] MEDS: ATORVASTATIN 20 MG TABLET 60 MG PO (21:03)
[2021-02-20] MEDS: AMITRIPTYLINE HCL 10 MG TABLET PO (21:03)
[2021-02-20] MEDS: REMDESIVIR 100 MG/NS 250 ML 100 MG/250 ML BAG 250 MG IVPB (21:04)
[2021-02-20 21:35] LABS: Glucose Point of Care 248 mg/dl (65-105)
[2021-02-21] VITALS (21 sets, daily range): BP systolic 128–152; BP diastolic 56–69; PULSE 54–88; RESP 16–20; TEMP 35.4–36.5; O2SAT 85–96
[2021-02-21] MEDS: ALBUTEROL SULFATE NEB 2.5 MG/0.5 ML INH 5 MG INHALATION ×4 (02:04→20:29)
[2021-02-21] MEDS: IPRATROPIUM BR 0.02% INH SOLN 0.5 MG/2.5 ML VIAL INHALATION ×4 (02:04→20:29)
[2021-02-21] MEDS: LEVOTHYROXINE SODIUM 100 MCG TABLET PO (05:42)
[2021-02-21 07:21] LABS: Hematocrit 36.9 % (37.0-47.0); Hemoglobin 11.3 g/dL (12.0-15.0); Immature Platelet Fraction Pct 7.4 % (0.9-11.2); Mean Corpuscular HGB Conc 30.6 g/dl (32-36); Mean Corpuscular Hemoglobin 31.3 pg (26-34); Mean Corpuscular Volume 102.2 fl (80-100); Mean Platelet Volume 10.8 fl (7.4-10.4); Platelet Count Result 124 k/mm3 (150-375); Red Blood Count 3.61 M/mm3 (4.2-5.4); Red Cell Distribution Width 13.6 % (11.5-14.5); White Blood Count 5.1 K/mm3 (4.5-10.0)
[2021-02-21 07:29] LABS: INR 1.8; Prothrombin Time 20.3 Seconds (11.1-14.7)
[2021-02-21 08:39] LABS: Glucose Point of Care 186 mg/dl (65-105)
[2021-02-21] MEDS: busPIRone HCL 10 MG TABLET PO ×2 (09:44→20:07)
[2021-02-21] MEDS: LORATADINE 10 MG TABLET PO (09:44)
[2021-02-21] MEDS: PANTOPRAZOLE 40 MG TABLET PO (09:44)
[2021-02-21] MEDS: FERROUS SULFATE 324 MG TABLET PO (09:44)
[2021-02-21] MEDS: MEMANTINE 5 MG TABLET PO ×2 (09:44→20:07)
[2021-02-21] MEDS: FUROSEMIDE 40 MG TABLET PO (09:44)
[2021-02-21] MEDS: ASPIRIN 81 MG CHEWABLE TABLET PO (09:44)
[2021-02-21] MEDS: guaiFENesin 12 HR 600 MG TABCR PO ×2 (09:44→20:08)
[2021-02-21] MEDS: METOPROLOL SUCCINATE EXT REL 50 MG TABCR PO (09:44)
[2021-02-21 10:05] LABS: CRP 6.6 mg/dL (<1.0)
[2021-02-21 10:07] LABS: Alanine Aminotransferase 19 U/L (4-35); Albumin Level 3.5 g/dL (3.5-5.1); Alkaline Phosphatase 49 U/L (38-126); Anion Gap 9 mmol/L (8-16); Aspartate Amino Transferase 53 U/L (14-36); Blood Urea Nitrogen 25 mg/dL (7-17); Carbon Dioxide 23 mmol/L (22-30); Chloride 108 mmol/L (98-107); Estimated CRCL calculation 61 ml/min; Estimated Glomerular Filt Rate > 60; Glucose 212 mg/dL (65-110); Potassium 3.5 mmol/L (3.4-5.0); Sodium 140 mmol/L (137-145)
--- NOTE | 2021-02-21 11:16 | HOMEO2EVAL ---
Evaluation was performed at [facility] Home Oxygen Evaluation RC: Home Oxygen (O2) Evaluation Start: 02/20/21 15:44 Freq: ONCE Status: Active Protocol: RPE Activity Type Activity Date Activity User E-Sign Co-Sign Detail Recorded Client Recorded Date Recorded By Document 02/21/21 10:15 DJO [email or web address] 02/21/21 11:16 DJO Document 02/21/21 10:20 DJO [email or web address] 02/21/21 11:16 DJO Document 02/21/21 10:25 [email or web address] [email or web address] 02/21/21 11:16 DJO Document 02/21/21 10:30 DJO [email or web address] 02/21/21 11:16 DJO Document 02/21/21 10:35 [email or web address] [email or web address] 02/21/21 11:16 DJO Document 02/21/21 10:45 [email or web address] [email or web address] 02/21/21 11:16 DJO 02/21/21 02/21/21 02/21/21 10:15 10:20 10:25 Home O2 Evaluation Test Phase Resting Exercise Exercise Oxygen Delivery Room Air Room Air Nasal Cannula Oxygen Flow Rate (L/min) 1 Pulse Oximetry (90-100 %) 91 85 L 86 L Pulse Rate (60-100 beats/min) 66 84 85 Activity Tolerance Poor Poor Treatment Charges O2 Evaluation - Inpatient 02/21/21 02/21/21 02/21/21 10:30 10:35 10:45 Home O2 Evaluation Test Phase Exercise Exercise Resting Oxygen Delivery Nasal Cannula Nasal Cannula Room Air Oxygen Flow Rate (L/min) 2 3 Pulse Oximetry (90-100 %) 88 L 90 90 Pulse Rate (60-100 beats/min) 83 88 67 Activity Tolerance Poor Treatment Charges
[2021-02-21 11:59] LABS: Glucose Point of Care 241 mg/dl (65-105)
[2021-02-21] MEDS: INSULIN ASPART (*BKC) 100 UNITS/ML SUB-Q ×2 (12:57→17:41)
--- NOTE | 2021-02-21 16:12 | P.PNIM_ITS ---
Progress Note: A&P Assessment and Plan (1) Acute respiratory failure due to COVID-19: Code(s): U07.1 - COVID-19; J96.00 - Acute respiratory failure, unspecified whether with hypoxia or hypercapnia Status: Acute Assessment and Plan: Noted to be hypoxic down to 88% on arrival * She required up to 2 L supplemental O2 but has now been weaned to room air and is maintaining O2 sats >92% * Continue supplemental O2 as needed with goal saturation 92% or above. Wean to goal. * Plan as described below (2) COVID-19: Code(s): U07.1 - COVID-19 Status: Acute Assessment and Plan: Patient tested positive for COVID on 02/13/2021. No significant airspace disease noted on CXR or CTA * Continue dexamethasone, started on 02/17 * Last dose of remdesivir today. ALT within normal limits * She has been tolerating room air. Home O2 eval performed today which demonstrates no need for O2 at rest and 3 L O2 requirement with activity * Supportive care to include bronchodilators, expectorants, antipyretics, and incentive spirometry * Continue isolation precautions * She completed Pfizer COVID vaccination on 07/24/2020 (3) Diabetes type 2, uncontrolled: Code(s): E11.65 - Type 2 diabetes mellitus with hyperglycemia Status: Chronic Assessment and Plan: A1c is 7.6. * Continue Accu-Cheks, sliding scale insulin, and hypoglycemic protocol * Glucose slightly elevated above target today due to IV steroids * Monitor glucose trends and adjust medications as needed (4) Hypertension: Code(s): I10 - Essential (primary) hypertension Status: Acute Assessment and Plan: Blood pressure reviewed and has been generally well controlled. Last BP 145/56 * Continue metoprolol succinate * Monitor BP trends (5) Hypothyroidism: Code(s): E03.9 - Hypothyroidism, unspecified Status: Chronic Assessment and Plan: TSH slightly decreased with normal T4. T3 slightly decreased * Continue levothyroxine * She will need repeat reflex TSH in 4 weeks upon resolution of acute illness (6) Dementia: Code(s): F03.90 - Unspecified dementia without behavioral disturbance Status: Chronic Assessment and Plan: A&O x1 at baseline * Mental status is at baseline at this time * Continue memantine (7) Choking due to food (regurgitated): Code(s): T17.320A - Food in larynx causing asphyxiation, initial encounter Status: Acute Assessment and Plan: On my evaluation yesterday the patient coughed up a cut a piece of fruit that she was eating. She denied dysphagia to me. * Evaluated by speech therapy with bedside swallow study today. No need for dietary modifications. No evidence of aspiration * Aspiration precautions * Provide assistance with meals * Soft diet * May consider outpatient EGD if she has subsequent episodes of food regurgi tation Additional Plan Medically stable for discharge. Awaiting insurance authorization for SNF placement as she is unable to return to her memory care facility due to COVID. 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 She is a poor hist
--- NOTE | 2021-02-21 16:12 | PM.IMPN ---
Progress Note: A&P Assessment and Plan (1) Acute respiratory failure due to COVID-19: Code(s): U07.1 - COVID-19; J96.00 - Acute respiratory failure, unspecified whether with hypoxia or hypercapnia Status: Acute Assessment and Plan: Noted to be hypoxic down to 88% on arrival She required up to 2 L supplemental O2 but has now been weaned to room air and is maintaining O2 sats >92% Continue supplemental O2 as needed with goal saturation 92% or above. Wean to goal. Plan as described below (2) COVID-19: Code(s): U07.1 - COVID-19 Status: Acute Assessment and Plan: Patient tested positive for COVID on 02/13/2021. No significant airspace disease noted on CXR or CTA Continue dexamethasone, started on 02/17 Last dose of remdesivir today. ALT within normal limits She has been tolerating room air. Home O2 eval performed today which demonstrates no need for O2 at rest and 3 L O2 requirement with activity Supportive care to include bronchodilators, expectorants, antipyretics, and incentive spirometry Continue isolation precautions She completed [employer] COVID vaccination on 07/24/2020 (3) Diabetes type 2, uncontrolled: Code(s): E11.65 - Type 2 diabetes mellitus with hyperglycemia Status: Chronic Assessment and Plan: A1c is 7.6. Continue Accu-Cheks, sliding scale insulin, and hypoglycemic protocol Glucose slightly elevated above target today due to IV steroids Monitor glucose trends and adjust medications as needed (4) Hypertension: Code(s): I10 - Essential (primary) hypertension Status: Acute Assessment and Plan: Blood pressure reviewed and has been generally well controlled. Last BP 145/56 Continue metoprolol succinate Monitor BP trends (5) Hypothyroidism: Code(s): E03.9 - Hypothyroidism, unspecified Status: Chronic Assessment and Plan: TSH slightly decreased with normal T4. T3 slightly decreased Continue levothyroxine She will need repeat reflex TSH in 4 weeks upon resolution of acute illness (6) Dementia: Code(s): F03.90 - Unspecified dementia without behavioral disturbance Status: Chronic Assessment and Plan: A&O x1 at baseline Mental status is at baseline at this time Continue memantine (7) Choking due to food (regurgitated): Code(s): T17.320A - Food in larynx causing asphyxiation, initial encounter Status: Acute Assessment and Plan: On my evaluation yesterday the patient coughed up a cut a piece of fruit that she was eating. She denied dysphagia to me. Evaluated by speech therapy with bedside swallow study today. No need for dietary modifications. No evidence of aspiration Aspiration precautions Provide assistance with meals Soft diet May consider outpatient EGD if she has subsequent episodes of food regurgitation Additional Plan Medically stable for discharge. Awaiting insurance authorization for SNF placement as she is unable to return to her memory care facility due to COVID. 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 She is a poor historian due to her dementia. Not able to obtain a reliable history. She reports feeling well and has no complaints. Review of Systems Review of Systems: All systems reviewed & are unremarkable except as noted in HPI and below Exam Narrative: Esme Reynolds is a well-nourished, well-appearing 85-year-old female who is sitting up in bed. She appears comfortable and is in NARD. Neuro: awake, alert and oriented to self only, speech clear, pleasantly confused HE
[2021-02-21 16:53] LABS: Glucose Point of Care 275 mg/dl (65-105)
[2021-02-21] MEDS: RIVAROXABAN 20 MG TABLET PO (17:41)
[2021-02-21] MEDS: ATORVASTATIN 20 MG TABLET 60 MG PO (20:07)
[2021-02-21] MEDS: AMITRIPTYLINE HCL 10 MG TABLET PO (20:08)
[2021-02-21 22:16] LABS: Glucose Point of Care 251 mg/dl (65-105)
[2021-02-21] MEDS: REMDESIVIR 100 MG/NS 250 ML 100 MG/250 ML BAG 250 MG IVPB (22:21)
[2021-02-22] VITALS (12 sets, daily range): BP systolic 138–154; BP diastolic 56–75; PULSE 54–82; RESP 14–18; TEMP 36.1–36.7; O2SAT 91–95
[2021-02-22] MEDS: IPRATROPIUM BR 0.02% INH SOLN 0.5 MG/2.5 ML VIAL INHALATION ×3 (03:25→14:22)
[2021-02-22] MEDS: ALBUTEROL SULFATE NEB 2.5 MG/0.5 ML INH 5 MG INHALATION ×3 (03:25→14:22)
[2021-02-22] MEDS: LEVOTHYROXINE SODIUM 100 MCG TABLET PO (05:46)
[2021-02-22 06:40] LABS: Hematocrit 34.7 % (37.0-47.0); Hemoglobin 11.4 g/dL (12.0-15.0)
[2021-02-22] MEDS: ASPIRIN 81 MG CHEWABLE TABLET PO (08:32)
[2021-02-22] MEDS: LORATADINE 10 MG TABLET PO (08:32)
[2021-02-22] MEDS: busPIRone HCL 10 MG TABLET PO (08:32)
[2021-02-22] MEDS: FERROUS SULFATE 324 MG TABLET PO (08:32)
[2021-02-22] MEDS: guaiFENesin 12 HR 600 MG TABCR PO (08:32)
[2021-02-22] MEDS: FUROSEMIDE 40 MG TABLET PO (08:32)
[2021-02-22] MEDS: METOPROLOL SUCCINATE EXT REL 50 MG TABCR PO (08:33)
[2021-02-22 08:34] LABS: Glucose Point of Care 164 mg/dl (65-105)
[2021-02-22] MEDS: MEMANTINE 5 MG TABLET PO (08:34)
[2021-02-22] MEDS: PANTOPRAZOLE 40 MG TABLET PO (08:34)
--- NOTE | 2021-02-22 10:58 | P.DS_ITS ---
DS: Admitting Diagnosis Discharge Date date of service 02/22/2021 at 9:40 a.m. Admitting Diagnosis COVID-19 DS: Discharge Diagnosis Discharge Diagnosis (1) Acute respiratory failure due to COVID-19: Code(s): U07.1 - COVID-19; J96.00 - Acute respiratory failure, unspecified whether with hypoxia or hypercapnia Status: Acute Assessment and Plan: Noted to be hypoxic down to 88% on arrival * She required up to 2 L supplemental O2 but has now been weaned to room air and is maintaining O2 sats >92% * Continue supplemental O2 as needed with goal saturation 92% or above. Wean to goal. * Plan as described below patient remained on room air throughout the night with saturations ranging 90- 95%. Home O2 evaluation shows patient will need 3 L nasal cannula with activity (2) COVID-19: Code(s): U07.1 - COVID-19 Status: Acute Assessment and Plan: Patient tested positive for COVID on 02/13/2021. No significant airspace disease noted on CXR or CTA * Continue dexamethasone, started on 02/17 * Last dose of remdesivir today. ALT within normal limits * She has been tolerating room air. Home O2 eval performed today which demonstrates no need for O2 at rest and 3 L O2 requirement with activity * Supportive care to include bronchodilators, expectorants, antipyretics, and incentive spirometry * Continue isolation precautions * She completed Pf[employer] COVID vaccination on 07/24/2020 (3) Diabetes type 2, uncontrolled: Code(s): E11.65 - Type 2 diabetes mellitus with hyperglycemia Status: Chronic Assessment and Plan: A1c is 7.6. * Continue Accu-Cheks, sliding scale insulin, and hypoglycemic protocol * Glucose slightly elevated above target today due to IV steroids * Monitor glucose trends and adjust medications as needed glucose this morning was 180 on labs patient will need to restart her home Januvia at discharge (4) Hypertension: Code(s): I10 - Essential (primary) hypertension Status: Acute Assessment and Plan: Blood pressure reviewed and has been generally well controlled. Last BP 154/65 * Continue metoprolol succinate * Monitor BP trends (5) Hypothyroidism: Code(s): E03.9 - Hypothyroidism, unspecified Status: Chronic Assessment and Plan: TSH slightly decreased with normal T4. T3 slightly decreased * Continue levothyroxine * She will need repeat reflex TSH in 4 weeks upon resolution of acute illness (6) Dementia: Code(s): F03.90 - Unspecified dementia without behavioral disturbance Status: Chronic Assessment and Plan: A&O x1 at baseline * Mental status is at baseline at this time * Continue memantine (7) Choking due to food (regurgitated): Code(s): T17.320A - Food in larynx causing asphyxiation, initial encounter Status: Acute Assessment and Plan: On my evaluation yesterday the patient coughed up a cut a piece of fruit that she was eating. She denied dysphagia to me. * Evaluated by speech therapy with bedside swallow study today. No need for dietary modifications. No evidence of aspiration * Aspiration precautions * Provide assistance with meals * Soft diet * May consider outpatient EGD if she has subsequent episodes of food regurgitation DS: Summary Hospital Course Hospital Course: patient is an 85-year-old female with a past medical history of dementia, diabetes, hypertension who presented to the hospital with decreased s
--- NOTE | 2021-02-22 10:58 | PM.DS ---
DS: Admitting Diagnosis Discharge Date date of service 02/22/2021 at 9:40 a.m. Admitting Diagnosis COVID-19 DS: Discharge Diagnosis Discharge Diagnosis (1) Acute respiratory failure due to COVID-19: Code(s): U07.1 - COVID-19; J96.00 - Acute respiratory failure, unspecified whether with hypoxia or hypercapnia Status: Acute Assessment and Plan: Noted to be hypoxic down to 88% on arrival She required up to 2 L supplemental O2 but has now been weaned to room air and is maintaining O2 sats >92% Continue supplemental O2 as needed with goal saturation 92% or above. Wean to goal. Plan as described below patient remained on room air throughout the night with saturations ranging 90-95%. Home O2 evaluation shows patient will need 3 L nasal cannula with activity (2) COVID-19: Code(s): U07.1 - COVID-19 Status: Acute Assessment and Plan: Patient tested positive for COVID on 02/13/2021. No significant airspace disease noted on CXR or CTA Continue dexamethasone, started on 02/17 Last dose of remdesivir today. ALT within normal limits She has been tolerating room air. Home O2 eval performed today which demonstrates no need for O2 at rest and 3 L O2 requirement with activity Supportive care to include bronchodilators, expectorants, antipyretics, and incentive spirometry Continue isolation precautions She completed [employer] COVID vaccination on 07/24/2020 (3) Diabetes type 2, uncontrolled: Code(s): E11.65 - Type 2 diabetes mellitus with hyperglycemia Status: Chronic Assessment and Plan: A1c is 7.6. Continue Accu-Cheks, sliding scale insulin, and hypoglycemic protocol Glucose slightly elevated above target today due to IV steroids Monitor glucose trends and adjust medications as needed glucose this morning was 180 on labs patient will need to restart her home Januvia at discharge (4) Hypertension: Code(s): I10 - Essential (primary) hypertension Status: Acute Assessment and Plan: Blood pressure reviewed and has been generally well controlled. Last BP 154/65 Continue metoprolol succinate Monitor BP trends (5) Hypothyroidism: Code(s): E03.9 - Hypothyroidism, unspecified Status: Chronic Assessment and Plan: TSH slightly decreased with normal T4. T3 slightly decreased Continue levothyroxine She will need repeat reflex TSH in 4 weeks upon resolution of acute illness (6) Dementia: Code(s): F03.90 - Unspecified dementia without behavioral disturbance Status: Chronic Assessment and Plan: A&O x1 at baseline Mental status is at baseline at this time Continue memantine (7) Choking due to food (regurgitated): Code(s): T17.320A - Food in larynx causing asphyxiation, initial encounter Status: Acute Assessment and Plan: On my evaluation yesterday the patient coughed up a cut a piece of fruit that she was eating. She denied dysphagia to me. Evaluated by speech therapy with bedside swallow study today. No need for dietary modifications. No evidence of aspiration Aspiration precautions Provide assistance with meals Soft diet May consider outpatient EGD if she has subsequent episodes of food regurgitation DS: Summary Hospital Course Hospital Course: patient is an 85-year-old female with a past medical history of dementia, diabetes, hypertension who presented to the hospital with decreased saturations. According to the ED note patient was not found to be between 88-91 and was placed on 2 L nasal cannula and sent to the hospital. Since admission patient was tested for COVID which came back positive. patient was treated with 5 days of remdesivir, supplemental oxygen, IV Decadron, and supportive care. Patient has been weaned successfully off oxygen and only needs 3 L nasal cannula with activity. Patient did claim that she did have some shortness of breath but
[2021-02-22 11:02] LABS: Alanine Aminotransferase 18 U/L (4-35); Albumin Level 3.5 g/dL (3.5-5.1); Alkaline Phosphatase 43 U/L (38-126); Anion Gap 11 mmol/L (8-16); Aspartate Amino Transferase 46 U/L (14-36); Bilirubin,Total 0.9 mg/dL (0.2-1.3); Blood Urea Nitrogen 24 mg/dL (7-17); Calcium 8.3 mg/dL (8.4-10.2); Carbon Dioxide 22 mmol/L (22-30); Chloride 106 mmol/L (98-107); Estimated CRCL calculation 54 ml/min; Estimated Glomerular Filt Rate > 60; Glucose 180 mg/dL (65-110); Sodium 139 mmol/L (137-145)
[2021-02-22 12:18] LABS: Glucose Point of Care 210 mg/dl (65-105)
[2021-02-22] MEDS: INSULIN ASPART (*BKC) 100 UNITS/ML SUB-Q (12:50)
--- NOTE | 2021-02-22 14:11 | PCOTNOTE ---
Attempted to see patient this pm, however patient declined. Pt stated, I don't feel like it.
== END 2021-02-22 15:10 | DRG 179 ==
LOC: ANHED 19:12 → ANH3MEDSUR 19:20
PROVIDERS: Emergency Medicine; Nurse Practitioner; Physician Assistant; Admitting Provider Internal Medicine; Emergency Provider Emergency Medicine; Visit Provider Family Medicine
DX: U07.1 COVID-19 (principal); E11.65 Type 2 diabetes mellitus with hyperglycemia; E11.36 Type 2 diabetes mellitus with diabetic cataract; H26.9 Unspecified cataract; T17.320A Food in larynx causing asphyxiation, initial encounter; X58.XXXA Exposure to other specified factors, initial encounter; K21.9 Gastro-esophageal reflux disease without esophagitis; F03.90 Unspecified dementia, unspecified severity, without behavioral disturbance, psychotic disturbance, mood disturbance, and anxiety; I25.10 Atherosclerotic heart disease of native coronary artery without angina pectoris; F32.A Depression, unspecified; E78.5 Hyperlipidemia, unspecified; H40.9 Unspecified glaucoma; G47.33 Obstructive sleep apnea (adult) (pediatric); E03.9 Hypothyroidism, unspecified; I10 Essential (primary) hypertension; Z79.01 Long term (current) use of anticoagulants; Z79.82 Long term (current) use of aspirin; Z79.84 Long term (current) use of oral hypoglycemic drugs; Z79.899 Other long term (current) drug therapy; Z86.711 Personal history of pulmonary embolism; Z86.718 Personal history of other venous thrombosis and embolism; Z86.73 Personal history of transient ischemic attack (TIA), and cerebral infarction without residual deficits; Z88.2 Allergy status to sulfonamides
CPT/HCPCS: 36415; 71046; 71275; 80048; 80053; 82565; 82948; 83036; 83605; 83615; 84439; 84443; 84460; 84480; 85014; 85018; 85025; 85027; 85055; 85380; 85610; 86140; 92610; 93005; 94618; 94640; 96365; 96372; 96375; 96376; 97161; 97165; 99285; A9270; G0378; J1100; J1650; J1815; Q9967

== ENCOUNTER 2022-05-01 10:32 | Inpatient (IN) | payer MEDICARE, SELFPAY ==
[2022-05-01] VITALS (16 sets, daily range): BP systolic 94–186; BP diastolic 55–94; PULSE 64–75; RESP 16–26; TEMP 36.5–36.8; O2SAT 89–100; BMI 38.7
--- NOTE | ~2022-05-01 | XR_ITS ---
XR chest 1V portable DATE: 05/01/2022 11:27 INDICATION: Cough, wheezing TECHNIQUE: 05/01/2022 portable AP chest at 1113 hours COMPARISON: 02/17/2021 CT pulmonary scan FINDINGS: Prominent calcified right lower lobe pulmonary granuloma. Smaller right basilar calcified p ulmonary granuloma Large hiatal hernia. There is left lower lobe infiltrate and/atelectasis and minimal atelectasis is s uggested at the right lung base. Borderline heart size. Aortic calcification. No hilar or mediastinal enlargement. Diffuse idiopathic skeletal hyperostosis and mild scoliosis of the thoracic spine. Osteopenia. IMPRESSION: Calcified right lower lobe pulmonary granulomas Large hiatal hernia Mild infiltrate or atelectasis at the lower lung zones, left greater than right Reviewed, dictated and finalized at location B. [facility]
--- NOTE | 2022-05-01 10:41 | ECG_ITS ---
Measurements Intervals [place] Rate: 69 P: 87 [place]: 170 QRS: 27 QRSD: 94 T: 209 QT: 407 QTc: 439 Interpretive Statements SINUS RHYTHM ST DEVIATION AND MODERATE T-WAVE ABNORMALITY, CONSIDER LATERAL ISCHEMIA [-0.1+ mV T- WAVE IN I/aVL/V5/V6] COMPARED TO ECG 02/17/2021 12:00:15 NO SIGNIFICANT CHANGES Electronically Signed On 05-02-2022 7:27:34 [employer] by Robert Parker M.D.
[2022-05-01 11:04] LABS: Glucose Point of Care 170 mg/dl (65-105)
[2022-05-01 11:05] LABS: Basophils Percent Auto 0.4 % (0.2-1.2); Eosinophils Absolute Auto 0.2 K/mm3 (0-0.3); Eosinophils Percent Auto 1.7 % (0-4.4); Immature Granulocyte Absolute 0.03 K/mm3 (0.00-0.031); Immature Granulocyte Percent A 0.3 % (0-0.5); Lymphocytes Absolute Auto 2.97 K/mm3 (0.9-3.2); Lymphocytes Percent Auto 29.3 % (18.3-44.2); Mean Corpuscular HGB Conc 32.4 g/dl (32-36); Mean Corpuscular Hemoglobin 30.9 pg (26-34); Mean Corpuscular Volume 95.4 fl (80-100); Mean Platelet Volume 10.8 fl (7.4-10.4); Monocytes Absolute Auto 1.1 K/mm3 (0.1-0.6); Monocytes Percent Auto 10.8 % (2.6-8.5); Neutrophils Absolute Auto 5.8 K/mm3 (1.3-6.7); Neutrophils Percent Auto 57.5 % (45.5-73.1); Platelet Count Result 150 k/mm3 (150-375); Red Blood Count 3.88 M/mm3 (4.2-5.4); Red Cell Distribution Width 13.7 % (11.5-14.5); White Blood Count 10.2 K/mm3 (4.5-10.0)
--- NOTE | 2022-05-01 11:08 | ED.AMS ---
HPI - Altered Mental Status General Chief Complaint: Altered Mental Status Stated Complaint: AMS, lethargy Time Seen by Provider: 05/01/22 10:45 Source: family and EMS Mode of arrival: EMS Limitations: clinical condition and dementia History of Present Illness HPI narrative: 86 years old white female came from memory care unit with altered mental status and weakness over the last 3 days. Her daughter is at the bedside, last time have seen the patient was 2 weeks ago, she is telling me that patient today looks more lethargic and have been coughing intermittently which is new. Patient is awake but disoriented x4 history of COVID infection 1 year ago. Patient normally not on oxygen, patient is DNR. Related Data Home Medications Medication Instructions Recorded Confirmed amitriptyline 10 mg tablet 10 mg PO HS 02/18/21 02/18/21 aspirin 81 mg chewable tablet 81 mg PO DAILY 02/18/21 02/18/21 atorvastatin 40 mg tablet 40 mg PO HS 02/18/21 02/18/21 buspirone 10 mg tablet 10 mg PO BID 02/18/21 02/18/21 ferrous sulfate 325 mg (65 mg 325 mg PO DAILY 02/18/21 02/18/21 iron) tablet fluticasone propionate 50 50 mcg intranasal PRN 02/18/21 02/18/21 mcg/actuation nasal spray,suspension (Allergy Relief (fluticasone)) furosemide 20 mg tablet 20 mg PO HS 02/18/21 02/18/21 furosemide 40 mg tablet 40 mg PO DAILY 02/18/21 02/18/21 levothyroxine 100 mcg tablet 100 mcg PO DAILY 02/18/21 02/18/21 loratadine 10 mg tablet 10 mg PO DAILY 02/18/21 02/18/21 memantine 5 mg tablet 5 mg PO BID 02/18/21 02/18/21 metoprolol succinate 50 mg 50 mg PO DAILY 02/18/21 02/18/21 tablet,extended release 24 hr pantoprazole 40 mg tablet,delayed 40 mg PO QAM 02/18/21 02/18/21 release potassium chloride 10 mEq 10 meq PO DAILY 02/18/21 02/18/21 tablet,extended release rivaroxaban 20 mg tablet (Xarelto) 20 mg PO DAILY 02/18/21 02/18/21 simethicone 125 mg chewable tablet 125 mg PO TID PRN discomfort 02/18/21 02/18/21 sitagliptin phosphate 25 mg tablet 25 mg PO DAILY 02/18/21 02/18/21 (Januvia) sitagliptin phosphate 50 mg tablet 50 mg PO DAILY 02/18/21 02/18/21 (Januvia) Allergies Allergy/AdvReac Type Severity Reaction Status Date / Time Sulfa (Sulfonamide Allergy Mild Unknown Verified 05/01/22 11:08 Antibiotics) Review of Systems Review of Systems: ROS unobtainable: Yes unobtainable due to mental status PMFSH Past Medical History Medical History CAD (coronary artery disease) Cataracts, both eyes Chronic GERD CVA (cerebral vascular accident) Dementia Depression Diabetes type 2, uncontrolled Dyslipidemia Glaucoma History of DVT (deep vein thrombosis) History of pulmonary embolism Hypertension Hypothyroidism Obstructive sleep apnea TIA (transient ischemic attack) Surgical History Surgical History H/O heart artery stent Family History Family History Mother Family history of osteoarthritis Family history of primary malignant neoplasm of liver Carcinoma of colon, Onset Age: 86 Grandparent Cerebrovascular accident Family history of coronary artery disease Family history of primary malignant neoplasm of liver Father Family history of diabetes mellitus in first degree relative Acute myocardial infarction FH myocardial infarction male first degree age known, Onset Age: 64 Sibling Family history of coronary artery disease Other Family history of cardiovascular disease Social History Social History Social History: According to her old records the patient has had 7 children total. She is . She is a lifelong nonsmoker. 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 The patient now lives in a facility. T Smoking status: Never smoker Alcohol intake: never Substance use: never Spiritual care concerns: No Exam Narrati
[2022-05-01 11:14] LABS: Alanine Aminotransferase 20 U/L (6-35); Albumin Level 4.1 g/dL (3.5-5.1); Alkaline Phosphatase 60 U/L (38-126); Anion Gap 7 mmol/L (8-16); Aspartate Amino Transferase 46 U/L (14-36); Bilirubin,Total 1.3 mg/dL (0.2-1.3); Blood Urea Nitrogen 21 mg/dL (7-17); Calcium 8.5 mg/dL (8.4-10.2); Carbon Dioxide 29 mmol/L (22-30); Chloride 102 mmol/L (98-107); Estimated CRCL calculation 40 ml/min; Estimated Glomerular Filt Rate 53; Glucose 174 mg/dL (65-110); Potassium 3.8 mmol/L (3.4-5.0); Sodium 138 mmol/L (137-145)
[2022-05-01 11:15] LABS: Partial Thromboplastin Time 37.8 SECONDS (22.3-36.8)
[2022-05-01 11:17] LABS: Appearance Urine Clear (Clear); Bilirubin Urine 1+ (Negative); Blood Urine Negative (Negative); Color Urine Yellow (Yellow); Glucose Urine UA Negative (Negative); Ketones Urine Negative (Negative); Leukocyte Esterase Ur Negative LEU/UL (Negative); Nitrate Urine Negative (Negative); Protein Urine 1+ mg/dL (Negative)
[2022-05-01 11:20] LABS: Mucus Urine Rare /lpf; Squamous Epithelial Cell Urine Many /hpf (Few)
[2022-05-01 11:25] LABS: Add Urine Microscopic? YES
[2022-05-01] MEDS: IPRATROPIUM BR 0.02% INH SOLN 0.5 MG/2.5 ML VIAL INHALATION ×2 (11:43→21:30)
[2022-05-01] MEDS: ALBUTEROL SULFATE NEB 2.5 MG/3 ML INH 5 MG INHALATION ×5 (11:43→21:30)
[2022-05-01 11:47] LABS: Alveolar/Arterial O2 Gradient 46.6 mmHg; Base Excess ABG 3.5 mEq/l (+/-2.0); Fractional Inspired Oxygen 21 %; HCO3 ABG 27.6 mEq/l (22.0-26.0); Oxygen Content ABG 15.9 %vol (16.0-22.0); PCO2 ABG 40.4 mmHg (35.0-45.0); PO2 ABG 54.8 mmHg (80.0-100.0); PO2 FiO2 Ratio Arterial Blood 2.61 %; Total Hemoglobin 12.9 g/dL (12.0-18.0); pH ABG 7.453 (7.350-7.450)
[2022-05-01 11:48] LABS: Device ROOM AIR; Modified Allen's Test Pass; Oxyhemoglobin 87.5 % THb (90.0-100.0); Site Drawn LEFT RADIAL
[2022-05-01 11:56] LABS: Influenza A QL RT-PCR Negative (Negative); Influenza B QL RT-PCR Negative (Negative); SARS-CoV-2 RNA PCR Negative
--- NOTE | 2022-05-01 13:10 | PM.IMHP ---
H&P: HPI History of Present Illness Date/Time: 05/01/22 13:10 Chief Complaint: Altered mental status Narrative: This is an 86-year-old female patient who resides at [facility]. Her daughter is at the bedside answering questions. The daughter stated that the patient had a foul-smelling urine since March and that the patient has not been drinking very well either. The patient has been more lethargic and has been coughing. The patient has been confused since she had COVID 1 year ago. The patient is not normally on oxygen and she is a DNR. The patient is coughing up thick yellow sputum. Her white count is 10.2. Her pH is 7.453 and her CO2 was normal and PO2 was only 54.8. Her blood sugar was noted to be 170. Lactic acid 2.1. She is negative for influenza A/B and COVID. Chest x-ray was read as calcified right lower lobe pulmonary granulomas large hiatal hernia. Mild infiltrate or atelectasis in the lower lung zones left greater than right. The patient was started on healthcare associated pneumonia antibiotic stewardship with Levaquin, and Zosyn. She was placed on oxygen at 2 L per nasal cannula. She was also given nebulizer treatments and IV fluids. The patient is being admitted to inpatient status on the date of service of 05/01/2022. Review of Systems Review of Systems: See HPI. Her daughter is at the bedside answering questions for me. All systems reviewed & are unremarkable except as noted in HPI and below Constitutional: Constitutional: Reports as per HPI and Reports no additional constitutional complaints Eyes: Eyes: Reports as per HPI and Reports no additional eye complaints ENT: Reports system reviewed and no additional complaints, except as documented and Reports Normal hearing present Cardiovascular: Cardiovascular: Reports no additional cardiovascular complaints Respiratory: Respiratory: Reports no additional respiratory complaints and Reports no additional respiratory complaints Gastrointestinal: Gastrointestinal: Reports as per HPI and Reports no additional gastrointestinal complaints Musculoskeletal: Musculoskeletal: Reports no additional musculoskeletal complaints Integumentary/Breasts: Skin/Breast: Reports system reviewed and no additional complaints, except as docu and Reports as per HPI Neurologic: Reports system reviewed and no additional complaints, except as documented, Reports as per HPI and Reports Normal hearing present Psychiatric: Psychiatric: Reports no additional psychiatric complaints and Reports as per HPI Endocrine: Endocrine: Reports no additional endocrine complaints Hematologic/Lymphatic: Hematologic/Lymphatic: Reports no additional hematologic/lymphatic complaints Allergic/Immunologic: Allergic/Immunologic: Reports no additional allergic/immunologic complaints [facility] Past Medical History Medical History (Updated 05/01/22 @ 15:[address] NP) Acute respiratory failure due to COVID-19 CAD (coronary artery disease) Cataracts, both eyes Chronic GERD CVA (cerebral vascular accident) Dementia Depression Diabetes type 2, uncontrolled Dyslipidemia Glaucoma History of DVT (deep vein thrombosis) History of pulmonary embolism Hypertension Hypothyroidism Obstructive sleep apnea TIA (transient ischemic attack) Surgical History Surgical History H/O heart artery stent Family History Family History Mother Family history of osteoarthritis Family history of primary malignant neoplasm of liver Carcinoma of colon, Onset Age: 86 Grandparent Cerebrovascular accident Family history of coronary artery disease Family history of primary malignant neoplasm of liver Father Family history of diabetes mellitus in first degree relative Acute myocardial infarction FH myocardial infarction male first degree age known, Onset Age: 64 Sibling Fa
[2022-05-01] MEDS: PIPERACILLIN/TAZOBACTAM SOD 4.5 GM in SODIUM CHLORIDE 0.9% IV 100 ML 200 ML IVPB (13:25)
--- NOTE | 2022-05-01 13:39 | PC.NURSE ---
Pt placed on 2 L NC O2 due to 89% on room air and increased WOB. Pt O2 currently 95% on 2 L NC.
[2022-05-01 13:53] LABS: Lactic Acid Reflex 2.1 mmol/L (0.7-2.0)
[2022-05-01 14:03] LABS: NT Pro B Type Natriuretic Pept 488 pg/mL (5-100)
[2022-05-01 14:27] LABS: CRP 14.2 mg/dL (<1.0)
--- NOTE | 2022-05-01 16:15 | ADMGEN ---
This patient, Esme Reynolds, was admitted to Medical Room 247-. Patient/family oriented to hospital policies and general routines including ID bracelet, bed and alarms, visiting hours, pain management, procedures, bathroom and other care routines, personal items, smoking policy, room service/diet, and visiting hours. Information on how to activate the Rapid Response Team has been discussed. Patient/Family are encouraged to report perceived risks to care and to ask questions if they do not understand what they are told or what they should do.
[2022-05-01 16:39] LABS: Reflex Lactic Acid Yes or No Add Lactic
[2022-05-01 17:01] LABS: Lactic Acid Reflex 2.2 mmol/L (0.7-2.0)
[2022-05-01] MEDS: SODIUM CHLORIDE 0.9% IV 1,000 ML 60 ML IV CONT (17:37)
[2022-05-01 17:52] LABS: Hemoglobin A1C 8.6 % (<5.7)
[2022-05-01 18:03] LABS: Glucose Point of Care 163 mg/dl (65-105)
[2022-05-01] MEDS: AMITRIPTYLINE HCL 10 MG TABLET PO (22:31)
[2022-05-01] MEDS: ATORVASTATIN 20 MG TABLET 60 MG PO (22:31)
[2022-05-01 22:58] LABS: Glucose Point of Care 220 mg/dl (65-105)
[2022-05-02] VITALS (7 sets, daily range): BP systolic 122–148; BP diastolic 56–69; PULSE 62–69; RESP 16–20; TEMP 36.2–36.6; O2SAT 92–98
[2022-05-02] MEDS: ALBUTEROL SULFATE NEB 2.5 MG/3 ML INH 5 MG INHALATION ×3 (03:20→21:37)
[2022-05-02] MEDS: IPRATROPIUM BR 0.02% INH SOLN 0.5 MG/2.5 ML VIAL INHALATION ×3 (03:21→21:37)
[2022-05-02] MEDS: PIPERACILLIN/TAZOBACTAM SOD 4.5 GM in SODIUM CHLORIDE 0.9% IV 100 ML 200 ML IVPB ×4 (05:47→17:08)
[2022-05-02] MEDS: LEVOTHYROXINE SODIUM 100 MCG TABLET PO (05:54)
[2022-05-02 06:01] LABS: Basophils Percent Auto 0.5 % (0.2-1.2); Eosinophils Absolute Auto 0.3 K/mm3 (0-0.3); Eosinophils Percent Auto 3.4 % (0-4.4); Hemoglobin 10.2 g/dL (12.0-15.0); Immature Granulocyte Absolute 0.05 K/mm3 (0.00-0.031); Immature Granulocyte Percent A 0.6 % (0-0.5); Lymphocytes Absolute Auto 1.83 K/mm3 (0.9-3.2); Lymphocytes Percent Auto 22.2 % (18.3-44.2); Mean Corpuscular HGB Conc 32.9 g/dl (32-36); Mean Corpuscular Hemoglobin 30.4 pg (26-34); Mean Corpuscular Volume 92.5 fl (80-100); Mean Platelet Volume 10.9 fl (7.4-10.4); Monocytes Absolute Auto 0.9 K/mm3 (0.1-0.6); Monocytes Percent Auto 10.7 % (2.6-8.5); Neutrophils Absolute Auto 5.2 K/mm3 (1.3-6.7); Neutrophils Percent Auto 62.6 % (45.5-73.1); Platelet Count Result 142 k/mm3 (150-375); Red Blood Count 3.35 M/mm3 (4.2-5.4); Red Cell Distribution Width 13.3 % (11.5-14.5); White Blood Count 8.2 K/mm3 (4.5-10.0)
[2022-05-02 06:14] LABS: Lactic Acid Reflex 0.8 mmol/L (0.7-2.0)
[2022-05-02 06:17] LABS: Alanine Aminotransferase 18 U/L (6-35); Albumin Level 3.4 g/dL (3.5-5.1); Alkaline Phosphatase 55 U/L (38-126); Anion Gap 6 mmol/L (8-16); Aspartate Amino Transferase 47 U/L (14-36); Blood Urea Nitrogen 15 mg/dL (7-17); Calcium 7.7 mg/dL (8.4-10.2); Carbon Dioxide 28 mmol/L (22-30); Chloride 100 mmol/L (98-107); Estimated CRCL calculation 46 ml/min; Estimated Glomerular Filt Rate 60; Glucose 134 mg/dL (65-110); Magnesium 1.7 mg/dL (1.6-2.3); Phosphorus 3.5 mg/dL (2.5-4.5); Potassium 3.3 mmol/L (3.4-5.0); Sodium 134 mmol/L (137-145)
--- NOTE | 2022-05-02 07:35 | PM.IMPN ---
Progress Note: A&P Assessment and Plan (1) Pneumonia: Code(s): J18.9 - Pneumonia, unspecified organism Status: Acute Assessment and Plan: -CXR Impression: calcified right lower lobe pulmonary granulomas, large hiatal hernia, mild infiltrate or atelectasis at the lower lung zones, left>right -continue with Zosyn, vanco, and Levaquin as per H cap antibiotic stewardship. -tailor antibiotics to sputum and blood cultures. -continue with neb treatments -the patient was hypoxic with her O2 saturations in the 90 percentile and the patient was started on oxygen at 2 L per nasal cannula. -recheck lactic 0.8; improved from admission when it was 2.2 -patient with bibasilar crackles, maintaining oxygen in the 90s on 2 L -white count within normal range -Continue antibiotics and monitor CBC and CMP. -PT and OT eval ordered. (2) Hypothyroidism: Code(s): E03.9 - Hypothyroidism, unspecified Status: Chronic Assessment and Plan: -TSH 2.3 -continue levothyroxine (3) Hypertension: Code(s): I10 - Essential (primary) hypertension Status: Acute Assessment and Plan: -Continue with metoprolol -continue with Lasix (4) Dyslipidemia: Code(s): E78.5 - Hyperlipidemia, unspecified Status: Chronic Assessment and Plan: -continue with atorvastatin. (5) Diabetes type 2, uncontrolled: Code(s): E11.65 - Type 2 diabetes mellitus with hyperglycemia Status: Chronic Assessment and Plan: -continue with Januvia -Accu-Cheks AC and HS with sliding scale insulin and hypoglycemic protocol. -blood sugar is stable. Continue with current regimen. (6) Depression: Code(s): F32.9 - Major depressive disorder, single episode, unspecified Status: Chronic Assessment and Plan: -continue with BuSpar and amitriptyline (7) Dementia: Code(s): F03.90 - Unspecified dementia, unspecified severity, without behavioral disturbance, psychotic disturbance, mood disturbance, and anxiety Status: Chronic Assessment and Plan: -continue with Namenda (8) CAD (coronary artery disease): Code(s): I25.10 - Atherosclerotic heart disease of [place] coronary artery without angina pectoris Status: Chronic Assessment and Plan: -continue with metoprolol, continue with atorvastatin, and aspirin (9) Anticoagulated: Code(s): Z79.01 - [facility] (current) use of anticoagulants Status: Acute Assessment and Plan: -she has had a history of PEs and DVTs. -continue with Xarelto Time Spent With Patient Time with patient: Greater than 35 minutes Subjective Date/time seen: 05/02/22 07:35 Interval history: 86-year-old with history of dementia, hypothyroidism, hypertension, CAD, and diabetes. Patient admitted to hospital due to respiratory failure and pneumonia. patient is sitting up in bed watching television while being used. Patient seen and is comfortable although confused. Patient unable to answer any of my questions regarding her health. Unable to obtain review of systems. Review of Systems Review of Systems: ROS unobtainable: Yes unobtainable due to mental status Exam Narrative: GENERAL: Comfortable, no acute distress HENMT: moist mucous membranes EYES: EOM intact b/l NECK: no lymphadenopathy RESPIRATORY: bibasilar crackles CARDIO: RRR GI: soft, nontender, bowel sounds present SKIN: no rashes EXTREMITIES: no edema, redness or tenderness Objective Data Vital Signs Vital Signs: Vital Signs - 24 hr 05/01/22 10:34 05/01/22 10:40 05/01/22 11:05 Temperature 97.7 F Pulse Rate 73 68 65 Respiratory Rate 20 21 H Blood Pressure 152/94 H 186/85 H Pulse Oximetry 94 94 Oxygen Delivery Room Air Oxygen Flow Rate 05/01/22 11:06 05/01/22 11:33 05/01/22 12:21 Temperature Pulse Rate 67 69 75 Respiratory Rate 16 25 H 23 H Blood Pressure Pulse Oximetry 93 Oxygen Delivery Oxygen Flow Rate
[2022-05-02] MEDS: MEMANTINE 5 MG TABLET PO ×2 (08:41→17:09)
[2022-05-02] MEDS: busPIRone HCL 5 MG TABLET 15 MG PO ×2 (08:41→17:09)
[2022-05-02] MEDS: PANTOPRAZOLE 40 MG TABLET PO (08:41)
[2022-05-02] MEDS: FERROUS SULFATE 324 MG TABLET PO (08:41)
[2022-05-02] MEDS: FUROSEMIDE 40 MG TABLET PO (08:42)
[2022-05-02] MEDS: RIVAROXABAN 20 MG TABLET PO (08:42)
[2022-05-02] MEDS: METOPROLOL SUCCINATE EXT REL 50 MG TABCR PO (08:42)
[2022-05-02 09:11] LABS: Glucose Point of Care 162 mg/dl (65-105)
[2022-05-02] MEDS: LORATADINE 10 MG TABLET PO (09:16)
[2022-05-02] MEDS: ASPIRIN 81 MG CHEWABLE TABLET PO (09:16)
[2022-05-02 12:10] LABS: Glucose Point of Care 141 mg/dl (65-105)
[2022-05-02] MEDS: SODIUM CHLORIDE 0.9% IV 1,000 ML 60 ML IV CONT (12:22)
[2022-05-02 17:26] LABS: Glucose Point of Care 154 mg/dl (65-105)
[2022-05-02] MEDS: ATORVASTATIN 20 MG TABLET 60 MG PO (21:05)
[2022-05-02] MEDS: AMITRIPTYLINE HCL 10 MG TABLET PO (21:05)
[2022-05-02 23:23] LABS: Glucose Point of Care 112 mg/dl (65-105)
[2022-05-03] VITALS (12 sets, daily range): BP systolic 120–147; BP diastolic 57–78; PULSE 64–70; RESP 16–20; TEMP 36.6–36.9; O2SAT 92–97
[2022-05-03] MEDS: PIPERACILLIN/TAZOBACTAM SOD 4.5 GM in SODIUM CHLORIDE 0.9% IV 100 ML 200 ML IVPB ×5 (01:09→23:28)
[2022-05-03] MEDS: ALBUTEROL SULFATE NEB 2.5 MG/3 ML INH 5 MG INHALATION ×3 (03:06→20:20)
[2022-05-03] MEDS: IPRATROPIUM BR 0.02% INH SOLN 0.5 MG/2.5 ML VIAL INHALATION ×3 (03:06→20:20)
[2022-05-03] MEDS: LEVOTHYROXINE SODIUM 100 MCG TABLET PO (06:13)
[2022-05-03 06:21] LABS: Basophils Percent Auto 0.5 % (0.2-1.2); Eosinophils Absolute Auto 0.3 K/mm3 (0-0.3); Eosinophils Percent Auto 3.5 % (0-4.4); Hematocrit 31.4 % (37.0-47.0); Hemoglobin 10.1 g/dL (12.0-15.0); Immature Granulocyte Absolute 0.04 K/mm3 (0.00-0.031); Immature Granulocyte Percent A 0.5 % (0-0.5); Lymphocytes Absolute Auto 1.96 K/mm3 (0.9-3.2); Lymphocytes Percent Auto 24.8 % (18.3-44.2); Mean Corpuscular HGB Conc 32.2 g/dl (32-36); Mean Corpuscular Hemoglobin 30.1 pg (26-34); Mean Corpuscular Volume 93.5 fl (80-100); Mean Platelet Volume 10.7 fl (7.4-10.4); Monocytes Absolute Auto 0.7 K/mm3 (0.1-0.6); Monocytes Percent Auto 8.8 % (2.6-8.5); Neutrophils Absolute Auto 4.9 K/mm3 (1.3-6.7); Neutrophils Percent Auto 61.9 % (45.5-73.1); Platelet Count Result 152 k/mm3 (150-375); Red Blood Count 3.36 M/mm3 (4.2-5.4); Red Cell Distribution Width 13.2 % (11.5-14.5); White Blood Count 7.9 K/mm3 (4.5-10.0)
[2022-05-03 06:39] LABS: Alanine Aminotransferase 20 U/L (6-35); Albumin Level 3.4 g/dL (3.5-5.1); Alkaline Phosphatase 45 U/L (38-126); Anion Gap 6 mmol/L (8-16); Aspartate Amino Transferase 53 U/L (14-36); Bilirubin,Total 1.3 mg/dL (0.2-1.3); Blood Urea Nitrogen 11 mg/dL (7-17); Calcium 7.6 mg/dL (8.4-10.2); Carbon Dioxide 28 mmol/L (22-30); Chloride 104 mmol/L (98-107); Estimated CRCL calculation 42 ml/min; Estimated Glomerular Filt Rate 53; Glucose 120 mg/dL (65-110); Potassium 3.3 mmol/L (3.4-5.0); Sodium 138 mmol/L (137-145)
--- NOTE | 2022-05-03 07:26 | PM.IMPN ---
Progress Note: A&P Assessment and Plan (1) Pneumonia: Code(s): J18.9 - Pneumonia, unspecified organism Status: Acute Assessment and Plan: -CXR Impression: calcified right lower lobe pulmonary granulomas, large hiatal hernia, mild infiltrate or atelectasis at the lower lung zones, left>right -continue with Zosyn, vanco, and Levaquin as per H cap antibiotic stewardship. -tailor antibiotics to sputum and blood cultures. -continue with neb treatments -the patient was hypoxic with her O2 saturations in the 90 percentile and the patient was started on oxygen at 2 L per nasal cannula. -recheck lactic 0.8; improved from admission when it was 2.2 -patient now on room air and maintaining oxygen in the 90s -white count within normal range -Continue antibiotics and monitor CBC and CMP. -PT and OT eval ordered. -blood culture no growth to date (2) Conjunctivitis: Code(s): H10.9 - Unspecified conjunctivitis Status: Acute Assessment and Plan: Bilateral conjunctivitis Erythromycin ointment prescribed Q4h (3) Hypothyroidism: Code(s): E03.9 - Hypothyroidism, unspecified Status: Chronic Assessment and Plan: -TSH 2.3 -continue levothyroxine (4) Hypertension: Code(s): I10 - Essential (primary) hypertension Status: Acute Assessment and Plan: -Continue with metoprolol -continue with Lasix (5) Dyslipidemia: Code(s): E78.5 - Hyperlipidemia, unspecified Status: Chronic Assessment and Plan: -continue with atorvastatin. (6) Diabetes type 2, uncontrolled: Code(s): E11.65 - Type 2 diabetes mellitus with hyperglycemia Status: Chronic Assessment and Plan: -continue with Januvia -Accu-Cheks AC and HS with sliding scale insulin and hypoglycemic protocol. -blood sugar is stable. Continue with current regimen. (7) Depression: Code(s): F32.9 - Major depressive disorder, single episode, unspecified Status: Chronic Assessment and Plan: -continue with BuSpar and amitriptyline (8) Dementia: Code(s): F03.90 - Unspecified dementia, unspecified severity, without behavioral disturbance, psychotic disturbance, mood disturbance, and anxiety Status: Chronic Assessment and Plan: -continue with Namenda (9) CAD (coronary artery disease): Code(s): I25.10 - Atherosclerotic heart disease of [place] coronary artery without angina pectoris Status: Chronic Assessment and Plan: -continue with metoprolol, continue with atorvastatin, and aspirin (10) Anticoagulated: 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 -continue with Xarelto Subjective Date/time seen: 05/03/22 07:26 Interval history: 86-year-old with history of dementia, hypothyroidism, hypertension, CAD, and diabetes. Patient admitted to hospital due to respiratory failure and pneumonia. patient is sitting up in bed watching television while being interviewed. Patient is pleasantly confused. Patient stated that her eyes were hurting/burning her but other than that answered no to all of my questions. Stated she did not have any chest pain, shortness a breath, nausea, vomiting, fever, or difficulty urinating. Unsure how accurate review of systems are. Review of Systems Review of Systems: All systems reviewed & are unremarkable except as noted in HPI and below Exam Narrative: GENERAL: Comfortable, no acute distress HENMT: Conjunctivitis, moist mucous membranes EYES: EOM intact b/l NECK: no lymphadenopathy RESPIRATORY: Lungs clear to auscultation CARDIO: RRR GI: soft, nontender, bowel sounds present SKIN: no rashes EXTREMITIES: no edema, redness or tenderness Objective Data Vital Signs Vital Signs: Vital Signs - 24 hr 05/02/22 07:38 05/02/22 14:00 05/02/22 21:40 Temperature 97.6 F Pulse Rate 69 67 69
[2022-05-03 08:29] LABS: Glucose Point of Care 198 mg/dl (65-105)
[2022-05-03] MEDS: SODIUM CHLORIDE 0.9% IV 1,000 ML 60 ML IV CONT (09:05)
[2022-05-03] MEDS: METOPROLOL SUCCINATE EXT REL 50 MG TABCR PO (09:09)
[2022-05-03] MEDS: FUROSEMIDE 40 MG TABLET PO (09:09)
[2022-05-03] MEDS: busPIRone HCL 5 MG TABLET 15 MG PO ×2 (09:10→16:58)
[2022-05-03] MEDS: RIVAROXABAN 20 MG TABLET PO (09:10)
[2022-05-03] MEDS: PANTOPRAZOLE 40 MG TABLET PO (09:10)
[2022-05-03] MEDS: FERROUS SULFATE 324 MG TABLET PO (09:10)
[2022-05-03] MEDS: MEMANTINE 5 MG TABLET PO ×2 (09:10→16:58)
[2022-05-03] MEDS: ASPIRIN 81 MG CHEWABLE TABLET PO (09:11)
[2022-05-03] MEDS: LORATADINE 10 MG TABLET PO (09:13)
--- NOTE | 2022-05-03 11:17 | PCRCNOTE ---
Window of time for administration has passed. See next scheduled administration.
[2022-05-03] MEDS: ERYTHROMYCIN OPHTH OINTMENT 1 GM TUBE 1 APPLIC EACH EYE ×3 (12:20→20:38)
[2022-05-03 12:29] LABS: Glucose Point of Care 172 mg/dl (65-105)
[2022-05-03 17:10] LABS: Glucose Point of Care 125 mg/dl (65-105)
[2022-05-03] MEDS: ATORVASTATIN 20 MG TABLET 60 MG PO (20:38)
[2022-05-03] MEDS: AMITRIPTYLINE HCL 10 MG TABLET PO (20:38)
[2022-05-03 21:16] LABS: Glucose Point of Care 120 mg/dl (65-105)
[2022-05-03 23:57] LABS: Vancomycin Trough 13.2 ug/mL (10.0-20.0)
[2022-05-04] VITALS (11 sets, daily range): BP systolic 151–168; BP diastolic 62–92; PULSE 61–71; RESP 16–21; TEMP 36.2–37; O2SAT 90–100
[2022-05-04] MEDS: PIPERACILLIN/TAZOBACTAM SOD 4.5 GM in SODIUM CHLORIDE 0.9% IV 100 ML 200 ML IVPB ×4 (05:49→23:33)
[2022-05-04] MEDS: ERYTHROMYCIN OPHTH OINTMENT 1 GM TUBE 1 APPLIC EACH EYE ×5 (05:50→20:21)
[2022-05-04] MEDS: SODIUM CHLORIDE 0.9% IV 1,000 ML 60 ML IV CONT (05:52)
[2022-05-04] MEDS: LEVOTHYROXINE SODIUM 100 MCG TABLET PO (06:00)
[2022-05-04 06:17] LABS: Hematocrit 32.5 % (37.0-47.0); Hemoglobin 10.7 g/dL (12.0-15.0); Mean Corpuscular HGB Conc 32.9 g/dl (32-36); Mean Corpuscular Hemoglobin 30.9 pg (26-34); Mean Corpuscular Volume 93.9 fl (80-100); Mean Platelet Volume 10.6 fl (7.4-10.4); Platelet Count Result 155 k/mm3 (150-375); Red Blood Count 3.46 M/mm3 (4.2-5.4); Red Cell Distribution Width 13.3 % (11.5-14.5); White Blood Count 6.9 K/mm3 (4.5-10.0)
[2022-05-04 06:40] LABS: Alanine Aminotransferase 20 U/L (6-35); Albumin Level 3.5 g/dL (3.5-5.1); Alkaline Phosphatase 52 U/L (38-126); Anion Gap 6 mmol/L (8-16); Aspartate Amino Transferase 56 U/L (14-36); Blood Urea Nitrogen 9 mg/dL (7-17); Carbon Dioxide 29 mmol/L (22-30); Chloride 101 mmol/L (98-107); Estimated CRCL calculation 38 ml/min; Estimated Glomerular Filt Rate 47; Glucose 127 mg/dL (65-110); Potassium 3.1 mmol/L (3.4-5.0); Sodium 136 mmol/L (137-145)
--- NOTE | 2022-05-04 07:43 | PM.IMPN ---
Progress Note: A&P Assessment and Plan (1) Pneumonia: Code(s): J18.9 - Pneumonia, unspecified organism Status: Acute Assessment and Plan: -CXR Impression: calcified right lower lobe pulmonary granulomas, large hiatal hernia, mild infiltrate or atelectasis at the lower lung zones, left>right -continue with Zosyn, vanco, and Levaquin as per H cap antibiotic stewardship. -tailor antibiotics to sputum and blood cultures. -blood culture no growth to date -continue with neb treatments -the patient was hypoxic with her O2 saturations in the 90 percentile and the patient was started on oxygen at 2 L per nasal cannula. -recheck lactic 0.8; improved from admission when it was 2.2 -patient now on room air and maintaining oxygen in the 90s -white count within normal range -Continue antibiotics and monitor CBC and CMP. -PT and OT eval ordered. -MRSA nasal swab preformed; pending results, can tailor outpatient treatment to this. (2) Conjunctivitis: Code(s): H10.9 - Unspecified conjunctivitis Status: Acute Assessment and Plan: -Bilateral conjunctivitis -Erythromycin ointment prescribed Q4h (3) Hypothyroidism: Code(s): E03.9 - Hypothyroidism, unspecified Status: Chronic Assessment and Plan: -TSH 2.3 -continue levothyroxine (4) Hypertension: Code(s): I10 - Essential (primary) hypertension Status: Acute Assessment and Plan: -Continue with metoprolol -continue with Lasix (5) Dyslipidemia: Code(s): E78.5 - Hyperlipidemia, unspecified Status: Chronic Assessment and Plan: -continue with atorvastatin. (6) Diabetes type 2, uncontrolled: Code(s): E11.65 - Type 2 diabetes mellitus with hyperglycemia Status: Chronic Assessment and Plan: -continue with Januvia -Accu-Cheks AC and HS with sliding scale insulin and hypoglycemic protocol. -blood sugar is stable. Continue with current regimen. (7) Depression: Code(s): F32.9 - Major depressive disorder, single episode, unspecified Status: Chronic Assessment and Plan: -continue with BuSpar and amitriptyline (8) Dementia: Code(s): F03.90 - Unspecified dementia, unspecified severity, without behavioral disturbance, psychotic disturbance, mood disturbance, and anxiety Status: Chronic Assessment and Plan: -continue with Namenda (9) CAD (coronary artery disease): Code(s): I25.10 - Atherosclerotic heart disease of [place] coronary artery without angina pectoris Status: Chronic Assessment and Plan: -continue with metoprolol, continue with atorvastatin, and aspirin (10) Anticoagulated: 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 -continue with Xarelto (11) Hypokalemia: Code(s): E87.6 - Hypokalemia Status: Acute Assessment and Plan: Potassium this morning 3.1 60 meq K given recheck in the AM Subjective Date/time seen: 05/04/22 07:43 Interval history: 86-year-old with history of dementia, hypothyroidism, hypertension, CAD, and diabetes. Patient admitted to hospital due to respiratory failure and pneumonia. patient is sitting up in bed watching television while being interviewed. Patient is pleasantly confused. Patient does not have any eye pain today and they appear to be looking much better. Patient denies chest pain, shortness a breath, nausea, vomiting, fever, body aches, lower extremity swelling. Patient does have a cough. Review of Systems Review of Systems: All systems reviewed & are unremarkable except as noted in HPI and below Exam Narrative: GENERAL: Comfortable, no acute distress HENMT: Conjunctivitis, moist mucous membranes EYES: EOM intact b/l NECK: no lymphadenopathy RESPIR
[2022-05-04] MEDS: IPRATROPIUM BR 0.02% INH SOLN 0.5 MG/2.5 ML VIAL INHALATION ×2 (08:35→19:48)
[2022-05-04] MEDS: ALBUTEROL SULFATE NEB 2.5 MG/3 ML INH 5 MG INHALATION ×2 (08:35→19:48)
[2022-05-04 08:47] LABS: Glucose Point of Care 135 mg/dl (65-105)
[2022-05-04] MEDS: POTASSIUM CHLORIDE 20 MEQ PACKET (FOR LIQUID) 60 MEQ PO (09:07)
[2022-05-04] MEDS: LORATADINE 10 MG TABLET PO (09:08)
[2022-05-04] MEDS: PANTOPRAZOLE 40 MG TABLET PO (09:09)
[2022-05-04] MEDS: MEMANTINE 5 MG TABLET PO ×2 (09:09→17:03)
[2022-05-04] MEDS: RIVAROXABAN 20 MG TABLET PO (09:09)
[2022-05-04] MEDS: busPIRone HCL 5 MG TABLET 15 MG PO ×2 (09:10→17:02)
[2022-05-04] MEDS: ASPIRIN 81 MG CHEWABLE TABLET PO (09:10)
[2022-05-04] MEDS: METOPROLOL SUCCINATE EXT REL 50 MG TABCR PO (09:10)
[2022-05-04] MEDS: FUROSEMIDE 40 MG TABLET PO (09:10)
[2022-05-04] MEDS: FERROUS SULFATE 324 MG TABLET PO (09:10)
[2022-05-04 11:51] LABS: Glucose Point of Care 158 mg/dl (65-105)
[2022-05-04 16:54] LABS: Glucose Point of Care 138 mg/dl (65-105)
[2022-05-04] MEDS: AMITRIPTYLINE HCL 10 MG TABLET PO (20:21)
[2022-05-04] MEDS: ATORVASTATIN 20 MG TABLET 60 MG PO (20:21)
[2022-05-04 21:08] LABS: Glucose Point of Care 117 mg/dl (65-105)
[2022-05-05] VITALS (11 sets, daily range): BP systolic 126–166; BP diastolic 71–88; PULSE 61–76; RESP 16–18; TEMP 36.1–36.6; O2SAT 95–96
[2022-05-05] MEDS: IPRATROPIUM BR 0.02% INH SOLN 0.5 MG/2.5 ML VIAL INHALATION ×3 (02:42→15:11)
[2022-05-05] MEDS: ALBUTEROL SULFATE NEB 2.5 MG/3 ML INH 5 MG INHALATION ×3 (02:42→15:11)
[2022-05-05] MEDS: SODIUM CHLORIDE 0.9% IV 1,000 ML 60 ML IV CONT (03:16)
[2022-05-05] MEDS: ERYTHROMYCIN OPHTH OINTMENT 1 GM TUBE 1 APPLIC EACH EYE ×3 (05:04→12:29)
[2022-05-05] MEDS: PIPERACILLIN/TAZOBACTAM SOD 4.5 GM in SODIUM CHLORIDE 0.9% IV 100 ML 200 ML IVPB ×2 (05:45→11:09)
[2022-05-05 05:46] LABS: Hematocrit 36.2 % (37.0-47.0); Hemoglobin 11.3 g/dL (12.0-15.0); Mean Corpuscular HGB Conc 31.2 g/dl (32-36); Mean Corpuscular Hemoglobin 31.7 pg (26-34); Mean Corpuscular Volume 101.4 fl (80-100); Mean Platelet Volume 10.7 fl (7.4-10.4); Platelet Count Result 164 k/mm3 (150-375); Red Blood Count 3.57 M/mm3 (4.2-5.4); Red Cell Distribution Width 13.2 % (11.5-14.5); White Blood Count 6.2 K/mm3 (4.5-10.0)
[2022-05-05] MEDS: LEVOTHYROXINE SODIUM 100 MCG TABLET PO (05:46)
[2022-05-05 05:54] LABS: Anion Gap 7 mmol/L (8-16); Blood Urea Nitrogen 7 mg/dL (7-17); Calcium 8.1 mg/dL (8.4-10.2); Carbon Dioxide 26 mmol/L (22-30); Chloride 107 mmol/L (98-107); Estimated CRCL calculation 51 ml/min; Estimated Glomerular Filt Rate > 60; Glucose 153 mg/dL (65-110); Potassium 2.7 mmol/L (3.4-5.0); Sodium 140 mmol/L (137-145)
[2022-05-05] MEDS: POTASSIUM CHLORIDE INJ 40 MEQ in SODIUM CHLORIDE 0.9% IV 500 ML 130 MEQ IVPB (06:35)
[2022-05-05] MEDS: POTASSIUM CHLORIDE 20 MEQ PACKET (FOR LIQUID) 80 MEQ PO (06:39)
--- NOTE | 2022-05-05 07:55 | PM.IMPN ---
Progress Note: A&P Assessment and Plan (1) Pneumonia: Code(s): J18.9 - Pneumonia, unspecified organism Status: Acute Assessment and Plan: -CXR Impression: calcified right lower lobe pulmonary granulomas, large hiatal hernia, mild infiltrate or atelectasis at the lower lung zones, left>right -continue with Zosyn, vanco, and Levaquin as per H cap antibiotic stewardship. -tailor antibiotics to sputum and blood cultures. -blood culture no growth to date -continue with neb treatments -the patient was hypoxic with her O2 saturations in the 90 percentile and the patient was started on oxygen at 2 L per nasal cannula. -recheck lactic 0.8; improved from admission when it was 2.2 -patient now on room air and maintaining oxygen in the 90s -white count within normal range -Continue antibiotics and monitor CBC and CMP. -PT and OT eval ordered. -MRSA swallow canceled due to not having effect on treatment planning. Will treat for MRSA on discharge. (2) Conjunctivitis: Code(s): H10.9 - Unspecified conjunctivitis Status: Acute Assessment and Plan: -Bilateral conjunctivitis -Erythromycin ointment prescribed Q4h (3) Hypothyroidism: Code(s): E03.9 - Hypothyroidism, unspecified Status: Chronic Assessment and Plan: -TSH 2.3 -continue levothyroxine (4) Hypertension: Code(s): I10 - Essential (primary) hypertension Status: Acute Assessment and Plan: -Continue with metoprolol -continue with Lasix (5) Dyslipidemia: Code(s): E78.5 - Hyperlipidemia, unspecified Status: Chronic Assessment and Plan: -continue with atorvastatin. (6) Diabetes type 2, uncontrolled: Code(s): E11.65 - Type 2 diabetes mellitus with hyperglycemia Status: Chronic Assessment and Plan: -continue with Januvia -Accu-Cheks AC and HS with sliding scale insulin and hypoglycemic protocol. -blood sugar is stable. Continue with current regimen. (7) Depression: Code(s): F32.9 - Major depressive disorder, single episode, unspecified Status: Chronic Assessment and Plan: -continue with BuSpar and amitriptyline (8) Dementia: Code(s): F03.90 - Unspecified dementia, unspecified severity, without behavioral disturbance, psychotic disturbance, mood disturbance, and anxiety Status: Chronic Assessment and Plan: -continue with Namenda (9) CAD (coronary artery disease): Code(s): I25.10 - Atherosclerotic heart disease of [place] coronary artery without angina pectoris Status: Chronic Assessment and Plan: -continue with metoprolol, continue with atorvastatin, and aspirin (10) Anticoagulated: 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 -continue with Xarelto (11) Hypokalemia: Code(s): E87.6 - Hypokalemia Status: Acute Assessment and Plan: Potassium this morning 2.7 Patient given 80 mEq p.o. and 40 mEq IV recheck potassium @ 1200 Patient currently on furosemide. Will continue potassium treatment daily due to Lasix use. Time Spent With Patient Time with patient: Greater than 35 minutes Subjective Date/time seen: 05/05/22 07:55 Interval history: 86-year-old with history of dementia, hypothyroidism, hypertension, CAD, and diabetes. Patient admitted to hospital due to respiratory failure and pneumonia. patient lying in bed resting. Patient is pleasantly confused. Patient states that she is having some congestion and mild shortness of breath. Patient denies chest pain, nausea, vomiting, fever, body aches, chills and eye pain. Patient states that she does not have a cough and that she does not remember ever having one. Review of Systems Review of Systems: Unsure of the accuracy due to p
[2022-05-05 08:40] LABS: Glucose Point of Care 113 mg/dl (65-105)
[2022-05-05] MEDS: METOPROLOL SUCCINATE EXT REL 50 MG TABCR PO (08:55)
[2022-05-05] MEDS: FUROSEMIDE 40 MG TABLET PO (08:55)
[2022-05-05] MEDS: ASPIRIN 81 MG CHEWABLE TABLET PO (08:55)
[2022-05-05] MEDS: RIVAROXABAN 20 MG TABLET PO (08:55)
[2022-05-05] MEDS: FERROUS SULFATE 324 MG TABLET PO (08:56)
[2022-05-05] MEDS: PANTOPRAZOLE 40 MG TABLET PO (08:56)
[2022-05-05] MEDS: busPIRone HCL 5 MG TABLET 15 MG PO (08:56)
[2022-05-05] MEDS: MEMANTINE 5 MG TABLET PO (08:56)
[2022-05-05] MEDS: LORATADINE 10 MG TABLET PO (09:05)
[2022-05-05 12:00] LABS: Potassium 4.4 mmol/L (3.4-5.0)
[2022-05-05 12:05] LABS: Glucose Point of Care 130 mg/dl (65-105)
[2022-05-05 12:33] LABS: Vancomycin Trough 22.5 ug/mL (10.0-20.0)
--- NOTE | 2022-05-05 12:48 | PM.DS ---
DS: Admitting Diagnosis Discharge Date 05/05/2022 Admitting Diagnosis Pneumonia, acute respiratory distress DS: Discharge Diagnosis Discharge Diagnosis (1) Pneumonia: Code(s): J18.9 - Pneumonia, unspecified organism Status: Acute (2) Conjunctivitis: Code(s): H10.9 - Unspecified conjunctivitis Status: Acute (3) Hypothyroidism: Code(s): E03.9 - Hypothyroidism, unspecified Status: Chronic (4) Hypertension: Code(s): I10 - Essential (primary) hypertension Status: Acute (5) Dyslipidemia: Code(s): E78.5 - Hyperlipidemia, unspecified Status: Chronic (6) Diabetes type 2, uncontrolled: Code(s): E11.65 - Type 2 diabetes mellitus with hyperglycemia Status: Chronic (7) Depression: Code(s): F32.9 - Major depressive disorder, single episode, unspecified Status: Chronic (8) Dementia: Code(s): F03.90 - Unspecified dementia, unspecified severity, without behavioral disturbance, psychotic disturbance, mood disturbance, and anxiety Status: Chronic (9) CAD (coronary artery disease): Code(s): I25.10 - Atherosclerotic heart disease of [place] coronary artery without angina pectoris Status: Chronic (10) Anticoagulated: Code(s): Z79.01 - terminal make up operator (current) use of anticoagulants Status: Acute (11) Hypokalemia: Code(s): E87.6 - Hypokalemia Status: Acute DS: Summary Hospital Course Reason for hospitalization: Pneumonia, acute respiratory failure Hospital Course: 86-year-old with history of dementia, hypothyroidism, hypertension, CAD,? and diabetes. Patient presented to the ER on 05/01/2022 from [facility] due to increasing weakness. Patient did have intermittent cough and disorientation x4. Patient admitted to hospital due to? respiratory failure and pneumonia.? Patient had a white count of 10.2 on presentation and lactic acidosis. Chest x-ray revealed calcified right lower lobe pneumonia granulomas, mild infiltrate or atelectasis at the lower lung zones left greater than right. Patient started on hospital-acquired pneumonia treatment regimen with Levaquin, Zosyn and vancomycin. Patient started on 2 L nasal cannula, given nebulizer treatments and IV fluids. Blood cultures drawn and preliminary cultures did not reveal any growth today. Will follow blood cultures and tailor therapy as needed. Patient's repeat lactic acid decreased to 0 point. Patient able to maintain oxygen the 90s on room air. White count trended down within normal range. Patient had mild conjunctivitis during her stay and was given erythromycin ointment q.4h. Conjunctivitis improved with treatment. Patient had mild hypokalemia during her stay. Patient will be put on potassium q.d. due to Lasix use. Recommend follow-up labs in 1 week. Patient will continue antibiotic treatment as outpatient. Status at Discharge Functional status at discharge: wheelchair bound Overall status at discharge: patient is progressing back to baseline Time Spent with Patient Time attestation: Total time spent providing and/or coordinating discharge services: Exam Narrative: GENERAL: Comfortable, no acute distress HENMT: moist mucous membranes, normal conjunctiva EYES: EOM intact b/l NECK: no lymphadenopathy RESPIRATORY: Lungs clear to auscultation CARDIO: RRR GI: soft, nontender, bowel sounds present SKIN: no rashes EXTREMITIES: no edema, redness or tenderness DS: Data Data Completed and Pending Labs on day of discharge: Labs from last 24 hours 05/05/22 05/05/22 05/05/22 12:02 11:42 11:42 WBC RBC Hgb Hct MCV MCH MCHC RDW Plt Count MPV Sodium Potassium 4.4 Chloride Carbon Dioxide Anion Gap BUN Creatinine Estim Creat Clear Calc Estimated GFR Glucose POC Capillary Glucose 130 H Calcium Magnesium Vancomycin Trough 22.5 H 04/24
[2022-05-05 13:56] LABS: EDCOVIDSCREEN Negative (Negative)
--- NOTE | 2022-05-10 13:37 | PC.NURSE ---
Blood cx are negative.
== END 2022-05-05 16:30 | DRG 194 ==
LOC: ANHED 14:12 → ANH2MED 05-04 11:09 → ANH3MEDSUR 05-07 11:36
PROVIDERS: Internal Medicine; Internal Medicine Critical Care Medicine; Nurse Practitioner; Admitting Provider Family Medicine; Emergency Provider Emergency Medicine; Visit Provider Internal Medicine
DX: J18.9 Pneumonia, unspecified organism (principal); E87.20 Acidosis, unspecified; Z20.822 Contact with and (suspected) exposure to COVID-19; E03.9 Hypothyroidism, unspecified; E78.5 Hyperlipidemia, unspecified; E11.65 Type 2 diabetes mellitus with hyperglycemia; I10 Essential (primary) hypertension; H10.33 Unspecified acute conjunctivitis, bilateral; F32.9 Major depressive disorder, single episode, unspecified; F03.90 Unspecified dementia, unspecified severity, without behavioral disturbance, psychotic disturbance, mood disturbance, and anxiety; I25.10 Atherosclerotic heart disease of native coronary artery without angina pectoris; E87.6 Hypokalemia; G47.33 Obstructive sleep apnea (adult) (pediatric); K21.9 Gastro-esophageal reflux disease without esophagitis; H40.9 Unspecified glaucoma; R09.02 Hypoxemia; Z66 Do not resuscitate; Z86.16 Personal history of COVID-19; Z79.01 Long term (current) use of anticoagulants; Z86.73 Personal history of transient ischemic attack (TIA), and cerebral infarction without residual deficits; Z86.718 Personal history of other venous thrombosis and embolism; Z86.711 Personal history of pulmonary embolism; Z95.5 Presence of coronary angioplasty implant and graft
CPT/HCPCS: 36415; 36600; 51701; 71045; 80048; 80053; 80202; 81001; 82728; 82805; 82948; 83036; 83605; 83735; 83880; 84100; 84132; 84443; 85025; 85027; 85610; 85730; 86140; 87040; 87081; 87426; 87636; 93005; 94640; 97110; 97161; 97165; 97530; 99291; A9270; C9803; J1956; J2543; J3370; J3480; J7030; J7040

== ENCOUNTER 2023-06-19 17:56 | Emergency (ER) | payer MEDICARE, SELFPAY ==
--- NOTE | ~2023-06-19 | CT_ITS ---
EXAMINATION: CT facial & cervical spine wo DATE: 06/19/2023 18:21 INDICATION: Head injury. TECHNIQUE: Computed tomography (CT) of the maxillofacial region and cervical spine was performed with out intravenous contrast. Automated exposure control and iterative reconstruction technique were empl oyed. The dose-length product was 510.51 mGy-cm. COMPARISON: Head CT 01/15/2018 FINDINGS: MAXILLOFACIAL CT: There is right periorbital soft tissue swelling with hematoma. The orbits are normal. There is mucosa l thickening in the paranasal sinuses. There is leftward deviation of the nasal septum. No fracture. CERVICAL SPINE CT: A calcified right lung nodule and calcified mediastinal lymph nodes are consistent with old granuloma tous disease. There is kyphosis of cervical spine. There is 7 degrees dextrocurvature of cervicothora cic spine. Vertebral body heights are normal. There is mildly decreased disc height at C3-C4 and syd rely decreased disc height from C4-C5 through C6-C7. The following disc levels are specifically discu ssed: C2-C3: There is no uncovertebral joint osteoarthritis. There is severe bilateral facet joint osteoart hritis. There is mild bilateral neural foraminal stenosis. There is no central canal stenosis. C3-C4: There is mild bilateral uncovertebral joint osteoarthritis. There is severe bilateral facet luis felipe int osteoarthritis. There is mild bilateral neural foraminal stenosis. There is mild central canal st enosis. C4-C5: There is severe bilateral uncovertebral joint osteoarthritis. There is severe bilateral facet joint osteoarthritis. There is moderate right and mild left neural foraminal stenosis. There is mild central canal stenosis. C5-C6: There is severe bilateral uncovertebral joint osteoarthritis. There is moderate bilateral face t joint osteoarthritis. There is mild right and moderate left neural foraminal stenosis. There is mod erate central canal stenosis. C6-C7: There is severe bilateral uncovertebral joint osteoarthritis. There is severe bilateral facet joint osteoarthritis. There is mild bilateral neural foraminal stenosis. There is mild central canal stenosis. C7-T1: There is mild bilateral uncovertebral joint osteoarthritis. There is severe bilateral facet luis [place] int osteoarthritis. There is mild bilateral neural foraminal stenosis. There is no central canal sten osis. IMPRESSION: 1. No fracture. 2. Severe cervical spondylosis. Reviewed, dictated and finalized at location E. O SCRIPT WRITER
--- NOTE | ~2023-06-19 | CT_ITS ---
EXAMINATION: CT brain wo con DATE: 06/19/2023 18:21 INDICATION: Head injury. TECHNIQUE: Computed tomography (CT) of the head was performed without intravenous contrast. The mA wa s adjusted according to patient size. Iterative reconstruction technique was employed. The dose-lengt h product was 605.33 mGy-cm. COMPARISON: Head CT 01/15/2018 FINDINGS: There are old infarcts in the left parietal lobe and left temporal occipital region. There are scattered areas of low attenuation in the cerebral white matter. There is no intracranial hemorrh age, acute infarction, or abnormal intracranial mass lesion. The ventricles are normal in size. The o rbits are normal. There is right periorbital soft tissue swelling with hematoma. There is mucosal thi ckening in the paranasal sinuses. The mastoid air cells are normal. IMPRESSION: 1. 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 2. Stable moderate nonspecific cerebral white matter disease, which likely represents chronic small v essel ischemic disease. Reviewed, dictated and finalized at location E. SUPERVISOR IMPRESSION: 1. 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 2. Stable moderate nonspecific cerebral white matter disease, which likely repr esents chronic small vessel ischemic disease.
[2023-06-19 18:03] VITALS: BP 121/90; PULSE 63; RESP 20; TEMP 36.3; O2SAT 96
[2023-06-19 19:15] VITALS: PULSE 68; RESP 12; TEMP 36.6; O2SAT 97
--- NOTE | 2023-06-19 19:44 | ED.GENADULT ---
HPI - General Adult General Chief complaint: Head Injury Stated complaint: fall/ hit head/ asking for ct scan Time Seen by Provider: 06/19/23 19:19 History of Present Illness HPI narrative: Patient is a 8-year-old female who presents emergency department with chief complaint of fall and head injury patient is a resident of a local nursing facility and fell from her bed striking her right face patient had some bruising around the right orbit reports no visual changes denies loss of consciousness Related Data Home Medications Medication Instructions Recorded Confirmed amitriptyline 10 mg tablet 10 mg PO HS 02/18/21 05/01/22 aspirin 81 mg chewable tablet 81 mg PO DAILY 02/18/21 05/01/22 atorvastatin 40 mg tablet 40 mg PO HS 02/18/21 05/01/22 buspirone 10 mg tablet 15 mg PO BID 02/18/21 05/01/22 ferrous sulfate 325 mg (65 mg 325 mg PO DAILY 02/18/21 05/01/22 iron) tablet furosemide 40 mg tablet 40 mg PO DAILY 02/18/21 05/01/22 levothyroxine 100 mcg tablet 100 mcg PO DAILY 02/18/21 05/01/22 loratadine 10 mg tablet 10 mg PO DAILY 02/18/21 05/01/22 memantine 5 mg tablet 5 mg PO BID 02/18/21 05/01/22 metoprolol succinate 50 mg 50 mg PO DAILY 02/18/21 05/01/22 tablet,extended release 24 hr pantoprazole 40 mg tablet,delayed 40 mg PO QAM 02/18/21 05/01/22 release rivaroxaban 20 mg tablet (Xarelto) 20 mg PO DAILY 02/18/21 05/01/22 sitagliptin phosphate 25 mg tablet 25 mg PO DAILY 02/18/21 05/01/22 (Januvia) Allergies Allergy/AdvReac Type Severity Reaction Status Date / Time Sulfa (Sulfonamide Allergy Mild Unknown Verified 06/19/23 18:04 Antibiotics) Review of Systems Review of Systems: A 10 system review of systems was completed on the patient and is negative except for what is stated in the HPI. Nursing and ancillary documentation was reviewed. [facility] Past Medical History Medical History Acute respiratory failure due to COVID-19 CAD (coronary artery disease) Cataracts, both eyes Chronic GERD CVA (cerebral vascular accident) Dementia Depression Diabetes type 2, uncontrolled Dyslipidemia Glaucoma History of DVT (deep vein thrombosis) History of pulmonary embolism Hypertension Hypothyroidism Obstructive sleep apnea TIA (transient ischemic attack) Surgical History Surgical History H/O heart artery stent Family History Family History Mother Family history of osteoarthritis Family history of primary malignant neoplasm of liver Carcinoma of colon, Onset Age: 86 Grandparent Cerebrovascular accident Family history of coronary artery disease Family history of primary malignant neoplasm of liver Father Family history of diabetes mellitus in first degree relative Acute myocardial infarction FH myocardial infarction male first degree age known, Onset Age: 64 Sibling Family history of coronary artery disease Other Family history of cardiovascular disease Social History Social History Social History: the patient has had 7 children total. She is . She is a lifelong nonsmoker. 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 The patient now lives in [facility] Code status DNR Smoking status: Never smoker Alcohol intake: never Substance use: never Spiritual care concerns: No Exam Narrative: GENERAL: Well-appearing, well-nourished, and in no acute distress. HEAD: Normocephalic, Bruising around the right orbit. EYES: PERRLA and EOMI. no subconjunctival hemorrhage ENT: Nares clear, no rhinorrhea or epistaxis. Mucous membranes moist. NECK: Supple. CHEST: Clear to auscultation. No respiratory distress. HEART: Regular rate and rhythm. No murmur heard. Normal peripheral pulses. ABDOMEN: Soft, nontender, nondistended, normal acti
== END 2023-06-19 20:04 ==
PROVIDERS: Emergency Provider Emergency Medicine
DX: S05.11XA Contusion of eyeball and orbital tissues, right eye, initial encounter (principal); F03.90 Unspecified dementia, unspecified severity, without behavioral disturbance, psychotic disturbance, mood disturbance, and anxiety; I25.10 Atherosclerotic heart disease of native coronary artery without angina pectoris; E78.5 Hyperlipidemia, unspecified; E11.39 Type 2 diabetes mellitus with other diabetic ophthalmic complication; H42 Glaucoma in diseases classified elsewhere; K21.9 Gastro-esophageal reflux disease without esophagitis; G47.33 Obstructive sleep apnea (adult) (pediatric); Z66 Do not resuscitate; Z95.5 Presence of coronary angioplasty implant and graft; Z86.16 Personal history of COVID-19; Z86.73 Personal history of transient ischemic attack (TIA), and cerebral infarction without residual deficits; Z86.711 Personal history of pulmonary embolism; Z86.718 Personal history of other venous thrombosis and embolism; Z79.82 Long term (current) use of aspirin; Z79.84 Long term (current) use of oral hypoglycemic drugs; Z79.01 Long term (current) use of anticoagulants; W06.XXXA Fall from bed, initial encounter
CPT/HCPCS: 70450; 70486; 72125; 99284